=== PATIENT | male | born 1970 | race Caucasian/White ===

== ENCOUNTER 2023-05-30 16:34 | Inpatient (IN) | payer OTHER ==
[2023-05-30 17:00] LABS: Glucose,Whole Blood 271 mg/dL (70-110)
[2023-05-30 17:22] LABS: Basophils # (A) 0.1 k/uL (0-0.2); Basophils % (A) 0 %; Eosinophils # (A) 0.2 k/uL (0-0.7); Eosinophils % (A) 1 %; HCT 44.5 % (39.0-53.0); HGB 14.9 gm/dL (13.0-17.5); Lymphocytes # (A) 0.9 k/uL (1.0-4.8); Lymphocytes % (A) 4 %; MCH 26.5 pg (25.0-35.0); MCHC 33.5 g/dL (31.0-37.0); MCV 79.2 fL (80.0-100.0); Mean Platelet Volume 8.9; Monocytes # (A) 1.3 k/uL (0-1.0); Monocytes % (A) 6 %; Neutrophils # (A) 19.3 k/uL (1.3-7.7); Neutrophils % (A) 87 %; Platelet Count 208 k/uL (150-450); RBC 5.62 m/uL (4.30-5.90); RDW 13.4 % (11.5-15.5); WBC 22.3 k/uL (3.8-10.6)
[2023-05-30 17:37] LABS: ALT 22 U/L (4-49); AST 19 U/L (17-59); African American GFR (CKD) >90 (>60 ml/min/1.73 sqM); Albumin 4.1 g/dL (3.5-5.0); Alkaline Phosphatase 69 U/L (38-126); Anion Gap 11 mmol/L; Blood Urea Nitrogen 14 mg/dL (9-20); Calcium 9.1 mg/dL (8.4-10.2); Carbon Dioxide 20 mmol/L (22-30); Chloride 106 mmol/L (98-107); Glucose 263 mg/dL (74-99); Non-African American GFR(CKD) >90 (>60 ml/min/1.73 sqM); Sodium 137 mmol/L (137-145); Total Bilirubin 0.9 mg/dL (0.2-1.3); Total Protein 7.5 g/dL (6.3-8.2)
--- NOTE | 2023-05-30 18:12 | ED ---
General Adult HPI - General Chief complaint: Headache Stated complaint: Headache Time Seen by Provider: 05/30/23 16:52 Source: patient Mode of arrival: ambulatory Limitations: no limitations - History of Present Illness Initial comments: 53-year-old male presenting to the ED with a chief complaint of headache. Patient reports that he has history of migraines. States that migraines typically affect the back of his head however today states has had headache to the front of his head for the past 4 to 5 days. Reports that his symptoms are typically well-controlled with ibuprofen, Tylenol, and Imitrex at home. Despite taking these medications he reports no relief which she states is unusual with his history of headaches. Does note some associated photophobia with his headache which she does state is similar with history of headaches. In addition patient reports that he has been more tired than usual. States that he recently was switched from metformin to Ozempic. States on day one of the injection he typically has abdominal pains and nausea. Over the week he reports that this has resolved but still notes some lingering abdominal pain. He notes that he is no longer nauseous though and is actually hungry. No chest pains or shortness of breath. No other complaints at this time. - Related Data Home Medications Medication Instructions Recorded Confirmed Dicyclomine [Bentyl] 20 mg PO BID 05/31/23 05/31/23 Ibuprofen [Motrin] 800 mg PO Q8H PRN 05/31/23 05/31/23 Losartan/Hydrochlorothiazide 0.5 tab PO HS 05/31/23 05/31/23 [Losartan-Hctz 100-12.5 mg Tab] Omeprazole [PriLOSEC] 20 mg PO BID 05/31/23 05/31/23 SUMAtriptan succinate [Imitrex] 100 mg PO DAILY PRN 05/31/23 05/31/23 Semaglutide [Ozempic] 0.25 mg SQ LUCAS 05/31/23 05/31/23 Tamsulosin HCl [Flomax] 0.4 mg PO HS 05/31/23 05/31/23 Topiramate [Topamax] 100 mg PO HS 05/31/23 05/31/23 Previous Rx's Medication Instructions Recorded Cefpodoxime Proxetil [Vantin] 200 mg PO Q12HR #8 tab 06/01/23 Allergies Allergy/AdvReac Type Severity Reaction Status Date / Time erythromycin base AdvReac Abdominal Verified 05/31/23 08:41 Pain Review of Systems ROS Statement: Those systems with pertinent positive or pertinent negative responses have been documented in the HPI. ROS Other: All systems not noted in ROS Statement are negative. Past Medical History Past Medical History: Diabetes Mellitus, GERD/Reflux, Hypertension Additional Past Medical History / Comment(s): Migraines, UTI's, IBS History of Any Multi-Drug Resistant Organisms: None Reported Past Surgical History: No Surgical Hx Reported Past Psychological History: No Psychological Hx Reported Smoking Status: Never smoker Past Alcohol Use History: None Reported Past Drug Use History: None Reported - Past Family History Brother(s) Family Medical History: Hypertension Additional Family Medical History / Comment(s): migraines Mother Family Medical History: Hypertension Additional Family Medical History / Comment(s): migraines General Exam Limitations: no limitations General appearance: alert, in no apparent distress Eye exam: Present: PERRL, EOMI Neck exam: Present: normal inspection Respiratory exam: Present: normal lung sounds bilaterally Cardiovascular Exam: Present: regular rate GI/Abdominal exam: Present: soft, normal bowel sounds. Absent: distended, tenderness, guarding, rebound, rigid Neurological exam: Present: alert, oriented X3, CN II-XII intact (Tbjfbu-az-loir, [id number], rapid alternating hand movements intact.) Skin exam: Present: warm, dry Course Vital Signs 05/30/23 05/30/23 05/31/23 16:36 21:00 00:10 Temperature 98.7 F 98.5 F Pulse Rate 116 H 107 H 91 Respiratory 20 20 18 Rate Blood Pressure 166/89 152/80 142/82 O2 Sat by Pulse 96 94 L 99 Oximetry Medical Decision Making - Medical Decision Making Was pt. sent in by a medical professional or institution (, PA, IT SALES REPRESENTATIVE, urgent care, hospital, or residential...) When possible be specific @ -No Did you speak to anyone other than the patient for history (EMS, parent, family, police, friend...)? What history was obtained from this source @ -No Did you review nursing and triage notes (agree or disagree)? Why? @ -I reviewed and agree with nursing and triage notes Were old charts reviewed (outside hosp., previous admission, EMS record, old EKG, old radiological studies, urgent care reports/EKG's, residential records)? Report findings @ -No old charts were reviewed Differential Diagnosis (chest pain, altered mental status, abdominal pain women, abdominal pain men, vaginal bleeding, weakness, fever, dyspnea, syncope, headache, dizziness, GI bleed, back pain, seizure, CVA, palpatations, mental health, musculoskeletal)? @ -Differential Headache: Migraine, tension, cluster, carbon monoxide, central venous thrombosis, pension karma temporal arteritis, acute closure glaucoma, intercranial hemorrhage, mastoiditis, sinusitis, head injury, this is not meant to be an all-inclusive list. EKG interpreted by me (3pts min.). @ -None X-rays interpreted by me (1pt min.). @ -None done CT interpreted by me (1pt min.). @ -None done U/S interpreted by me (1pt. min.). @ -None done What testing was considered but not performed or refused? (CT, X-rays, U/S, labs)? Why? @ -None What meds were considered but not given or refused? Why? @ -None Did you discuss the management of the patient with other professionals (professionals i.e. , PA, IT SALES REPRESENTATIVE, lab, RT, psych nurse, social work specialist, cargo bracer, teacher, disabilities services officer, immigration case worker)? Give summary @ -Case discussed with Dr. Pace, who accepts admission. Was smoking cessation discussed for >3mins.? @ -No Was critical care preformed (if so, how long)? @ -Yes, 35 minutes. Were there social determinants of health that impacted care today? How? (Homelessness, low income, unemployed, alcoholism, drug addiction, transportation, low edu. Level, literacy, decrease access to med. care, long term, rehab)? @ -No Was there de-escalation of care discussed even if they declined (Discuss DNR or withdrawal of care, Hospice)? DNR status @ -No What co-morbidities impacted this encounter? (DM, HTN, Smoking, COPD, CAD, Cancer, CVA, ARF, Chemo, Hep., AIDS, mental health diagnosis, sleep apnea, morbid obesity)? @ -Type 2 diabetes Was patient admitted / discharged? Hospital course, mention meds given and route, prescriptions, significant lab abnormalities, going to OR and other pertinent info. @ -Admission 53-year-old male with a past medical history significant for type 2 diabetes and recurrent urinary tract infections presenting to the ED with a chief complaint of migraine which she also reports having history of however today's headache is more frontal in nature while history of headaches typically are occipital. Therefore CT brain was performed which revealed no evidence of acute finding. Patient provided analgesia here in the ED with significant improvement of headache however upon review of laboratory studies CBC is significant for an elevated white blood cell count of 22.3. Chemistry panel reviewed largely unremarkable except for some elevated blood sugars at 260. UA does appear consistent with infection with greater than 182 white blood cells, few white blood cell clumps, occasional bacteria. Vital signs reviewed. Patient is afebrile however is tachycardic and has a respiratory rate of 20. He does meet sepsis criteria which is why patient will be admitted to this hospital for continued IV antibiotics. Blood and urine cultures were obtained. Initiated IV antibiotics here in the ED. source of infection discovered at 1813. IV antibiotics ordered at 2039. Undiagnosed new problem with uncertain prognosis? Drug Therapy requiring intensive monitoring for toxicity (Heparin, Nitro, Insulin, Cardizem)? @ -No Were any procedures done? @ -No Diagnosis/symptom? @ -Urinary tract infection, migrain Acute, or Chronic, or Acute on Chronic? @ -Acute Uncomplicated (without systemic symptoms) or Complicated (systemic symptoms)? @ -Complicated Side effects of treatment? @ -No Exacerbation, Progression, or Severe Exacerbation? @ -No Poses a threat to life or bodily function? How? (Chest pain, [place], [place], pneumonia, PE, COPD, DKA, ARF, appy, cholecystitis, CVA, Diverticulitis, Homicidal, Suicidal, threat to staff... and all critical care pts) @ -Yes, sepsis - Lab Data Result diagrams: 06/01/23 09:55 06/01/23 09:55 Lab Results 05/30/23 05/30/23 05/30/23 Range/Units 16:59 17:14 17:14 WBC 22.3 H (3.8-10.6) k/uL RBC 5.62 (4.30-5.90) m/uL Hgb 14.9 (13.0-17.5) gm/dL Hct 44.5 (39.0-53.0) % MCV 79.2 L (80.0-100.0) fL MCH 26.5 (25.0-35.0) pg MCHC 33.5 (31.0-37.0) g/dL RDW 13.4 (11.5-15.5) % Plt Count 208 (150-450) k/uL MPV 8.9 Neutrophils % 87 % Lymphocytes % 4 % Monocytes % 6 % Eosinophils % 1 % Basophils % 0 % Neutrophils # 19.3 H (1.3-7.7) k/uL Lymphocytes # 0.9 L (1.0-4.8) k/uL Monocytes # 1.3 H (0-1.0) k/uL Eosinophils # 0.2 (0-0.7) k/uL Basophils # 0.1 (0-0.2) k/uL Sodium 137 (137-145) mmol/L Potassium 4.0 (3.5-5.1) mmol/L Chloride 106 (98-107) mmol/L Carbon Dioxide 20 L (22-30) mmol/L Anion Gap 11 mmol/L BUN 14 (9-20) mg/dL Creatinine 0.80 (0.66-1.25) mg/dL Est GFR (CKD-EPI)AfAm >90 (>60 ml/min/1.73 sqM) Est GFR (CKD-EPI)NonAf >90 (>60 ml/min/1.73 sqM) Glucose 263 H (74-99) mg/dL POC Glucose (mg/dL) 271 H (70-110) mg/dL POC Glu Community Support Worker ID Lucinda Dangelo Calcium 9.1 (8.4-10.2) mg/dL Total Bilirubin 0.9 (0.2-1.3) mg/dL AST 19 (17-59) U/L ALT 22 (4-49) U/L Alkaline Phosphatase 69 (38-126) U/L Total Protein 7.5 (6.3-8.2) g/dL Albumin 4.1 (3.5-5.0) g/dL Amylase (30-110) U/L Lipase (23-300) U/L Urine Color Urine Appearance (Clear) Urine pH (5.0-8.0) Ur Specific Clarence (1.001-1.035) Urine Protein (Negative) Urine Glucose (UA) (Negative) Urine Ketones (Negative) Urine Blood (Negative) Urine Nitrite (Negative) Urine Bilirubin (Negative) Urine Urobilinogen (<2.0) mg/dL Ur Leukocyte Esterase (Negative) Urine RBC (0-5) /hpf Urine WBC (0-5) /hpf Urine WBC Clumps (None) /hpf Ur Squamous Epith Cells (0-4) /hpf Urine Bacteria (None) /hpf Urine Mucus (None) /hpf Influenza Type A (PCR) (Not Detectd) Influenza Type B (PCR) (Not Detectd) RSV (PCR) (Not Detectd) SARS-CoV-2 (PCR) (Not Detectd) 05/30/23 05/30/23 05/30/23 Range/Units 18:08 18:10 19:33 WBC (3.8-10.6) k/uL RBC (4.30-5.90) m/uL Hgb (13.0-17.5) gm/dL Hct (39.0-53.0) % MCV (80.0-100.0) fL MCH (25.0-35.0) pg MCHC (31.0-37.0) g/dL RDW (11.5-15.5) % Plt Count (150-450) k/uL MPV Neutrophils % % Lymphocytes % % Monocytes % % Eosinophils % % Basophils % % Neutrophils # (1.3-7.7) k/uL Lymphocytes # (1.0-4.8) k/uL Monocytes # (0-1.0) k/uL Eosinophils # (0-0.7) k/uL Basophils # (0-0.2) k/uL Sodium (137-145) mmol/L Potassium (3.5-5.1) mmol/L Chloride (98-107) mmol/L Carbon Dioxide (22-30) mmol/L Anion Gap mmol/L BUN (9-20) mg/dL Creatinine (0.66-1.25) mg/dL Est GFR (CKD-EPI)AfAm (>60 ml/min/1.73 sqM) Est GFR (CKD-EPI)NonAf (>60 ml/min/1.73 sqM) Glucose (74-99) mg/dL POC Glucose (mg/dL) (70-110) mg/dL POC Glu Community Support Worker ID Calcium (8.4-10.2) mg/dL Total Bilirubin (0.2-1.3) mg/dL AST (17-59) U/L ALT (4-49) U/L Alkaline Phosphatase (38-126) U/L Total Protein (6.3-8.2) g/dL Albumin (3.5-5.0) g/dL Amylase 36 (30-110) U/L Lipase 27 (23-300) U/L Urine Color Yellow Urine Appearance Cloudy (Clear) Urine pH 6.0 (5.0-8.0) Ur Specific Clarence 1.028 (1.001-1.035) Urine Protein 2+ H (Negative) Urine Glucose (UA) 4+ H (Negative) Urine Ketones Trace H (Negative) Urine Blood Moderate H (Negative) Urine Nitrite Negative (Negative) Urine Bilirubin Negative (Negative) Urine Urobilinogen <2.0 (<2.0) mg/dL Ur Leukocyte Esterase Large H (Negative) Urine RBC 12 H (0-5) /hpf Urine WBC >182 H (0-5) /hpf Urine WBC Clumps Few H (None) /hpf Ur Squamous Epith Cells 1 (0-4) /hpf Urine Bacteria Occasional H (None) /hpf Urine Mucus Occasional H (None) /hpf Influenza Type A (PCR) Not Detected (Not Detectd) Influenza Type B (PCR) Not Detected (Not Detectd) RSV (PCR) Not Detected (Not Detectd) SARS-CoV-2 (PCR) Not Detected (Not Detectd) Disposition Clinical Impression: UTI (urinary tract infection), Headache Disposition: ADMITTED IP TO THIS HOSP
[2023-05-30] MEDS: SODIUM CHLORIDE 0.9% 1,000 ML IV STA ×2 (18:35→20:52)
[2023-05-30] MEDS: KETOROLAC 15 MG/ML 1 ML VIAL IVP STA (18:36)
--- NOTE | 2023-05-30 18:39 | CT ---
EXAMINATION TYPE: CT brain wo con DATE OF EXAM: 05/30/2023 HISTORY: intractable garcia CT DLP: 1242.4 mGycm. Automated Exposure Control for Dose Reduction was Utilized. TECHNIQUE: CT scan of the head is performed without contrast. COMPARISON: None. FINDINGS: There is no acute intracranial hemorrhage. . No mass or mass effect and no definite new att enuation defect. Extra-axial compartment is unremarkable. The globes are intact and the paranasal sin uses, middle ear cavities, and mastoid sinus air cells are clear. IMPRESSION: No acute process.
[2023-05-30 18:42] LABS: Amylase 36 U/L (30-110); Lipase 27 U/L (23-300)
[2023-05-30 19:04] LABS: Appearance,Urine Cloudy (Clear); Bacteria,Urine Occasional /hpf; Bilirubin,Urine Negative (Negative); Blood,Urine Moderate (Negative); Color,Urine Yellow; Glucose,Urine (UA) 4+ (Negative); Ketones,Urine Trace (Negative); Leukocyte Esterase,Urine Large (Negative); Mucus,Urine Occasional /hpf; Nitrite,Urine Negative (Negative); Protein,Urine 2+ (Negative); RBC,Urine 12 /hpf (0-5); Specific Gravity,Urine 1.028 (1.001-1.035); Squamous Epithelial Cell,Urine 1 /hpf (0-4); Urobilinogen,Urine <2.0 mg/dL (<2.0); WBC,Urine >182 /hpf (0-5)
[2023-05-30] MEDS: ACETAMINOPHEN TAB 500 MG TAB PO STA (19:40)
[2023-05-30] MEDS: DEXAMETHASONE SOD PHOSPHATE 10 MG/ML 1 ML VIAL IVP STA (19:40)
[2023-05-30] MEDS: METOCLOPRAMIDE 5 MG/ML 2 ML VIAL IVP STA (19:40)
[2023-05-30] MEDS: MAGNESIUM SULFATE-D5W PMX 1 GM in DEXTROSE/WATER 1 100ML.BAG IVPB SCH (19:44)
[2023-05-30] MEDS: SODIUM CHLORIDE 0.9% 2,000 ML IV STA (20:51)
[2023-05-30] MEDS ORDERED: ONDANSETRON 4 MG/2 ML VIAL IVP PRN (23:02)
[2023-05-30] MEDS ORDERED: NALOXONE 0.4 MG/ML 1 ML VIAL IV PRN (23:02)
[2023-05-31] MEDS: ACETAMINOPHEN TAB 325 MG TAB PO PRN (01:49)
[2023-05-31 05:30] LABS: Glucose,Whole Blood 296 mg/dL (70-110)
--- NOTE | 2023-05-31 06:12 | P.HPIM ---
History of Present Illness H&P Date: 05/31/23 Chief Complaint: Headache 53-year-old male with diabetes mellitus and recurrent UTI Patient coming into the hospital for evaluation of headache he reports history of migraines however has been having headache for the past 5 days with nausea but no vomiting he describes the episodes as getting worse and disabling with photophobia denies any focal neurodeficits denies any falls or head injury. Patient denies any fevers chills denies any abdominal pain back pain or urinary changes however while in the ED he was found to have high white count and UA was suggestive for possible UTI patient did confirm that he has been getting recurrent UTIs over the past year or 2 he follows up outpatient with urology. Patient denies smoking illicit drugs or heavy alcohol review of systems Pertinent positives as noted in HPI. All other systems were reviewed and are negative on exam Constitutional: No acute distress, conversant, pleasant Eyes: Anicteric sclerae, moist conjunctiva, Pupils equal round reactive to light ENMT: NC/AT Oropharynx clear, no erythema, or exudates Neck: Supple, no masses, or JVD No carotid bruits No thyromegaly Lungs: Clear to auscultation Clear to percussion Normal respiratory effort, no accessory muscle use Cardiovascular: Heart regular in rate and rhythm, No murmurs, gallops, or rubs No peripheral edema Abdominal: Soft Nontender, no guarding, rebound or rigidity Abdomen moving with respiration Normoactive bowel sounds Extremities: No digital cyanosis No clubbing Pedal pulses intact and symmetrical Radial pulses intact and symmetrical No calf tenderness Psychiatric: Alert and oriented to person, place and time Appropriate affect fair judgement Neuro Muscles Strength 5/5 in all 4 extremities Sensation to light touch grossly present throughout Cranial nerves II-XII grossly intact Past Medical History Past Medical History: Diabetes Mellitus, GERD/Reflux, Hypertension, Sleep Apnea/CPAP/BIPAP Additional Past Medical History / Comment(s): Migraines, UTI's, IBS, Sleep apnea with cpap, c4-c5 disc stenosis with injections, kidney stone, History of Any Multi-Drug Resistant Organisms: None Reported Past Surgical History: No Surgical Hx Reported Additional Past Surgical History / Comment(s): lasik surgery, carpal tunnel surgery (right), trigger finger surgery x 2, lipoma removal, Past Anesthesia/Blood Transfusion Reactions: No Reported Reaction Past Psychological History: No Psychological Hx Reported Smoking Status: Never smoker Past Alcohol Use History: None Reported Past Drug Use History: None Reported - Past Family History Brother(s) Family Medical History: Hypertension Additional Family Medical History / Comment(s): migraines Mother Family Medical History: Hypertension Additional Family Medical History / Comment(s): migraines Medications and Allergies Allergies Allergy/AdvReac Type Severity Reaction Status Date / Time Sulfa (Sulfonamide Allergy Rash/Hives Verified 05/30/23 16:39 Antibiotics) Physical Exam Vitals: Vital Signs Temp Pulse Pulse Resp BP BP Pulse Ox 05/31/23 00:23 97.4 F L 94 17 132/82 95 05/31/23 00:10 98.5 F 91 18 142/82 99 05/30/23 21:00 107 H 20 152/80 94 L 05/30/23 16:36 98.7 F 116 H 20 166/89 96 Intake and Output 05/30/23 05/30/23 05/31/23 14:59 22:59 06:59 Other: Weight 117.934 kg 117.934 kg Results CBC & Chem 7: 05/30/23 17:14 05/30/23 17:14 Labs: Abnormal Lab Results - Last 24 Hours (Table) 05/30/23 05/30/23 05/30/23 Range/Units 16:59 17:14 17:14 WBC 22.3 H (3.8-10.6) k/uL MCV 79.2 L (80.0-100.0) fL Neutrophils # 19.3 H (1.3-7.7) k/uL Lymphocytes # 0.9 L (1.0-4.8) k/uL Monocytes # 1.3 H (0-1.0) k/uL Carbon Dioxide 20 L (22-30) mmol/L Glucose 263 H (74-99) mg/dL POC Glucose (mg/dL) 271 H (70-110) mg/dL Urine Protein (Negative) Urine Glucose (UA) (Negative) Urine Ketones (Negative) Urine Blood (Negative) Ur Leukocyte Esterase (Negative) Urine RBC (0-5) /hpf Urine WBC (0-5) /hpf Urine WBC Clumps (None) /hpf Urine Bacteria (None) /hpf Urine Mucus (None) /hpf 05/30/23 Range/Units 18:10 WBC (3.8-10.6) k/uL MCV (80.0-100.0) fL Neutrophils # (1.3-7.7) k/uL Lymphocytes # (1.0-4.8) k/uL Monocytes # (0-1.0) k/uL Carbon Dioxide (22-30) mmol/L Glucose (74-99) mg/dL POC Glucose (mg/dL) (70-110) mg/dL Urine Protein 2+ H (Negative) Urine Glucose (UA) 4+ H (Negative) Urine Ketones Trace H (Negative) Urine Blood Moderate H (Negative) Ur Leukocyte Esterase Large H (Negative) Urine RBC 12 H (0-5) /hpf Urine WBC >182 H (0-5) /hpf Urine WBC Clumps Few H (None) /hpf Urine Bacteria Occasional H (None) /hpf Urine Mucus Occasional H (None) /hpf Thrombosis Risk Factor Assmnt - Choose All That Apply Each Factor Represents 1 point: Age 41-60 years Other congenital or acquired thrombophilia - If yes, enter type in comment: No Thrombosis Risk Factor Assessment Total Risk Factor Score: 1 Thrombosis Risk Factor Assessment Level: Low Risk Assessment and Plan Assessment: 53-year-old male with diabetes mellitus recurrent UTI coming in the hospital for evaluation of headache I discussed case with ED doctor and accepted the admission for sepsis secondary to complicated urinary tract infection recurrent, for IV antibiotics with anticipated length of stay more than 2 midnights Sepsis secondary to complicated UTI in male Follow-up cultures Rocephin 1 g IV piggyback daily Tylenol for fever White count 22 UA positive leukocyte esterase suggestive UTI IV fluid hydration status post 2 L normal saline continue with 130 cc/h Renal function unremarkable sodium 137 potassium 4 BUN 14 creatinine 0.8 Lactic acid unremarkable 1.6 Diabetes mellitus Insulin sliding scale Uncontrolled blood sugar Patient on Ozempic at home Migraine headache Continue with Tylenol 650 mg every 4 hours as needed Zofran 4 mg IV every [address] of the brain no acute intracranial pathology Full code DVT prophylaxis heparin subcu 3 times daily
[2023-05-31] MEDS ORDERED: DEXTROSE 50% SYRINGE 50 ML IVP PRN ×2 (06:13)
[2023-05-31] MEDS: INSULIN ASPART (NovoLOG) 100 UNIT/ML VIAL SQ SCH (06:40)
--- NOTE | 2023-05-31 08:33 | US ---
EXAMINATION TYPE: US kidneys/renal and bladder DATE OF EXAM: 05/31/2023 COMPARISON: NONE CLINICAL INDICATION: Male, 53 years old with history of sepsis, uti; Patient states multiple UTIs sin ce being diagnosed with DM 1 year ago. Patient denies any other signs, symptoms, or relevant history EXAM MEASUREMENTS: Right Kidney: 13.1 x 7.2 x 6.1 cm Left Kidney: 14.3 x 6.5 x 6.5 cm Post Void Residual Volume: NA mL Right Kidney: Multiple echogenic areas with minimal shadowing and twinkle artifact Left Kidney: Multiple echogenic areas with minimal shadowing and twinkle artifact; subcentimeter cyst noted Bladder: Not fully distended Bilateral Jets seen: Yes Normal Post Void Residual: NA There is no evidence for hydronephrosis at this point in time. No nephrolithiasis is seen. No hannah s are identified. The urinary bladder is anechoic. Bilateral ureteral jets are seen. Increased echotexture to liver parenchyma. IMPRESSION: 1. Bilateral nonobstructing renal calculi. No evidence for obstructive uropathy. 2. Hepatic steatosis.
[2023-05-31] MEDS ORDERED: cefTRIAXone IN SWFI 1,000 MG/10 ML SYRINGE IVP SCH (09:00)
[2023-05-31] MEDS: KETOROLAC 15 MG/ML 1 ML VIAL IVP PRN (10:34)
[2023-05-31 11:05] LABS: Basophils % (A) 0 %; Eosinophils % (A) 0 %; HCT 44.1 % (39.0-53.0); Lymphocytes # (A) 0.9 k/uL (1.0-4.8); Lymphocytes % (A) 6 %; MCH 26.1 pg (25.0-35.0); MCHC 31.6 g/dL (31.0-37.0); MCV 82.4 fL (80.0-100.0); Monocytes # (A) 0.8 k/uL (0-1.0); Monocytes % (A) 5 %; Neutrophils # (A) 14.1 k/uL (1.3-7.7); Neutrophils % (A) 88 %; Platelet Count 209 k/uL (150-450); RBC 5.35 m/uL (4.30-5.90); RDW 13.5 % (11.5-15.5)
[2023-05-31 11:15] LABS: African American GFR (CKD) >90 (>60 ml/min/1.73 sqM); Anion Gap 12 mmol/L; Blood Urea Nitrogen 20 mg/dL (9-20); Calcium 9.3 mg/dL (8.4-10.2); Carbon Dioxide 18 mmol/L (22-30); Chloride 109 mmol/L (98-107); Glucose 297 mg/dL (74-99); Non-African American GFR(CKD) >90 (>60 ml/min/1.73 sqM); Sodium 139 mmol/L (137-145)
[2023-05-31 11:46] LABS: Glucose,Whole Blood 280 mg/dL (70-110)
[2023-05-31 17:03] LABS: Glucose,Whole Blood 331 mg/dL (70-110)
[2023-05-31] MEDS ORDERED: NON FORMULARY DRUG (Losartan/Hydrochlorothiazide [Losartan-Hctz 100-12.5 Mg Tab] 1 EACH Ta PO SCH (21:00)
[2023-05-31 21:41] LABS: Glucose,Whole Blood 277 mg/dL (70-110)
[2023-05-31] MEDS: LOSARTAN 50 MG TAB PO SCH (21:47)
[2023-05-31] MEDS: TAMSULOSIN 0.4 MG CAP.ER.24H PO SCH (21:47)
[2023-05-31] MEDS: TOPIRAMATE 100 MG TAB PO SCH (21:47)
[2023-05-31] MEDS: PANTOPRAZOLE 40 MG TABLET PO SCH (22:29)
[2023-06-01 04:42] VITALS: PULSE 89
[2023-06-01 06:47] LABS: Glucose,Whole Blood 222 mg/dL (70-110)
[2023-06-01] MEDS: HYDROmorphone 1 MG/ML 1 ML SYRINGE IVP PRN (07:01)
[2023-06-01 08:53] VITALS: BP 115/71; RESP 19; TEMP 98.2
[2023-06-01 11:00] LABS: Basophils % (A) 0 %; Eosinophils # (A) 0.1 k/uL (0-0.7); Eosinophils % (A) 1 %; HCT 41.1 % (39.0-53.0); HGB 12.9 gm/dL (13.0-17.5); Lymphocytes # (A) 1.8 k/uL (1.0-4.8); Lymphocytes % (A) 13 %; MCH 26.1 pg (25.0-35.0); MCHC 31.4 g/dL (31.0-37.0); MCV 83.1 fL (80.0-100.0); Mean Platelet Volume 9.3; Monocytes # (A) 0.8 k/uL (0-1.0); Monocytes % (A) 6 %; Neutrophils # (A) 10.5 k/uL (1.3-7.7); Neutrophils % (A) 78 %; Platelet Count 241 k/uL (150-450); RBC 4.95 m/uL (4.30-5.90); RDW 13.6 % (11.5-15.5); WBC 13.5 k/uL (3.8-10.6)
[2023-06-01 11:23] LABS: Glucose,Whole Blood 204 mg/dL (70-110)
[2023-06-01 11:57] LABS: African American GFR (CKD) >90 (>60 ml/min/1.73 sqM); Anion Gap 13 mmol/L; Blood Urea Nitrogen 22 mg/dL (9-20); Calcium 9.1 mg/dL (8.4-10.2); Carbon Dioxide 18 mmol/L (22-30); Chloride 108 mmol/L (98-107); Glucose 253 mg/dL (74-99); Non-African American GFR(CKD) >90 (>60 ml/min/1.73 sqM); Potassium 3.4 mmol/L (3.5-5.1); Sodium 139 mmol/L (137-145)
[2023-06-01] MEDS: POTASSIUM CHLORIDE ER 20 MEQ TAB.ER PO STA (13:04)
--- NOTE | 2023-06-01 13:09 | P.DS ---
Providers Date of admission: 05/30/23 20:29 Expected date of discharge: 06/01/23 Attending physician: Aminah Pace MD Primary care physician: [facility] Hospital Course: Discharge Diagnosis: Complicated Gram negative UTI with sepsis Intractable migraine DM uncontrolled with A1C 8.7 HTN TYRONE Class III Obesity Hospital Course: Patient is a 53-year-old male with a history of chronic migraine headache on prophylactic medication with Topamax, recurrent urinary tract infections, diabetes, hypertension, and dyslipidemia who presented to the emergency department with complaints of fatigue, weakness, and headache. On admission he had noted some abdominal pain. Laboratory analysis revealed urinary tract infection with significant leukocytosis meeting sepsis criteria as his pulse was also 117. He was admitted and was started on IV fluids and Rocephin. He was also continued on IV Toradol and Dilaudid as needed for pain. His white blood cell count continue to improve. His headache improved and his symptoms resolved. He was subsequently determined stable for discharge home. Complex medical care. Patient's hemoglobin A1c 8.7. He reports that he was recently taken off of metformin and Jardiance and started on Ozempic however he has been having difficulty tolerating the 0.25 mg dose and he has not been able to increase it. He reports that his last A1c approximately 6 weeks ago was in the sevens and he is now up to 8.7. He is very concerned about this. We discussed that he has his metformin tablets still available at home. He is going to restart at 500 mg twice daily and then increase to his 1000 mg twice daily. He will continue to monitor his blood sugars at home. We also discussed that he came off Jardiance due to his recurrent urinary tract infections and follows closely with a urologist which he will continue to do. Follow-up: Patient follow-up with his primary care provider in 1 week. He was given a prescription for Vantin 200 mg twice daily for complicated urinary tract infection. His urine culture was not available at the time of discharge and I informed him that should his antibiotic need to be changed I will call him with further recommendations. Patient seen and examined at bedside. Doing well. Headache is feeling better. He is overall feeling better. Discussion and was conducted and complex medical care above Vital signs reviewed and stable. General: Nontoxic, no distress, appears at stated age Cardiovascular: S1S2 reg, no murmur, positive posterior tibial pulse bilateral, Lungs: CTA bilateral, no rhonchi, no rales, no accessory muscle use Abdominal: Soft, nontender to palpation, no guarding, no appreciable organomegaly Psych: Alert, oriented, appropriate affect A total of 45 minutes of time were spent preparing this complex discharge summary. Patient was discharged on 06/01/23. This dictation was prepared using [employer] voice recognition software. Though every attempt is made to correct errors during dictation some may still exist. Plan - Discharge Summary Discharge Rx Participant: No New Discharge Prescriptions: New Cefpodoxime Proxetil [Vantin] 200 mg PO Q12HR #8 tab Continue SUMAtriptan succinate [Imitrex] 100 mg PO DAILY PRN PRN Reason: Migraine Headache Tamsulosin HCl [Flomax] 0.4 mg PO HS Losartan/Hydrochlorothiazide [Losartan-Hctz 100-12.5 mg Tab] 0.5 tab PO HS Ibuprofen [Motrin] 800 mg PO Q8H PRN PRN Reason: Pain Omeprazole [PriLOSEC] 20 mg PO BID Dicyclomine [Bentyl] 20 mg PO BID Topiramate [Topamax] 100 mg PO HS Semaglutide [Ozempic] 0.25 mg SQ LUCAS Discharge Medication List Dicyclomine [Bentyl] 20 mg PO BID 05/31/23 [History] Ibuprofen [Motrin] 800 mg PO Q8H PRN 05/31/23 [History] Losartan/Hydrochlorothiazide [Losartan-Hctz 100-12.5 mg Tab] 0.5 tab PO HS 05/31/23 [History] Omeprazole [PriLOSEC] 20 mg PO BID 05/31/23 [History] SUMAtriptan succinate [Imitrex] 100 mg PO DAILY PRN 05/31/23 [History] Semaglutide [Ozempic] 0.25 mg SQ LUCAS 05/31/23 [History] Tamsulosin HCl [Flomax] 0.4 mg PO HS 05/31/23 [History] Topiramate [Topamax] 100 mg PO HS 05/31/23 [History] Cefpodoxime Proxetil [Vantin] 200 mg PO Q12HR #8 tab 06/01/23 [Rx] Follow up Appointment(s)/Referral(s): None,Stated [REFERRING] - 1-2 days [facility] [Primary Care Provider] - 1 Week Activity/Diet/Wound Care/Special Instructions: Activity: As tolerated Diet: Consistent carb Special Instructions: Please resume your metformin at 1000mg per day (1/2 tablet twice daily if able) and then after 5 days resume metformin 1000mg BID. Please continue to follow with your urologist and neurologist Discharge Disposition: HOME SELF-CARE
== END 2023-06-01 13:10 | disposition home or self-care (01) | DRG 872 ==
LOC: EC 16:34 → 4SSUR 20:29
PROVIDERS: ADMIT Internal Medicine; ATTEND Internal Medicine
DX: A41.51 Sepsis due to Escherichia coli [E. coli] (principal); N39.0 Urinary tract infection, site not specified; Z68.41 Body mass index [BMI] 40.0-44.9, adult; E11.65 Type 2 diabetes mellitus with hyperglycemia; E66.01 Morbid (severe) obesity due to excess calories; I10 Essential (primary) hypertension; G43.919 Migraine, unspecified, intractable, without status migrainosus; G47.33 Obstructive sleep apnea (adult) (pediatric); E78.5 Hyperlipidemia, unspecified; N20.0 Calculus of kidney; Z87.440 Personal history of urinary (tract) infections; Z79.899 Other long term (current) drug therapy; Z79.85 Long-term (current) use of injectable non-insulin antidiabetic drugs; Z88.1 Allergy status to other antibiotic agents; Z11.52 Encounter for screening for COVID-19; Z87.442 Personal history of urinary calculi
CPT/HCPCS: 36415; 70450; 76770; 80048; 80053; 81001; 82150; 83036; 83605; 83690; 85025; 87040; 87077; 87086; 87186; 87636; 96361; 96365; 96366; 96367; 96375; 99285

== ENCOUNTER 2023-10-27 13:51 | Inpatient (IN) | payer OTHER ==
--- NOTE | 2023-10-27 14:33 | ED ---
General Adult HPI - General Chief complaint: Fever Stated complaint: high temp Time Seen by Provider: 10/27/23 13:58 Source: patient Mode of arrival: ambulatory Limitations: no limitations - History of Present Illness Initial comments: Dictation was produced using [employer] dictation software. please excuse any grammatical, word or spelling errors. Chief Complaint: 53-year-old male with past medical history of diabetes and migraines presents with a headache for fever History of Present Illness: Patient is a 53-year-old male. Presents to the emergency department with significant other. Significant other states that patient has history of diabetes and gets frequent UTIs. Patient has had a fever for the last 24 hours. Denies any obvious sick contacts but he does work at the [employer]. Patient has a history of migraines. Complains of a bifrontal headache that is throbbing in nature states that this headache feels like his usual headaches. Denies any neck stiffness. He does have diffuse myalgias. Mild abdominal pain. No cough. No shortness of breath no sore throat. The ROS documented in this emergency department record has been reviewed and confirmed by me. Those systems with pertinent positive or negative responses have been documented in the HPI. All other systems are other negative and/or noncontributory. - Related Data Home Medications Medication Instructions Recorded Confirmed Dicyclomine [Bentyl] 20 mg PO BID 05/31/23 05/31/23 Ibuprofen [Motrin] 800 mg PO Q8H PRN 05/31/23 05/31/23 Losartan/Hydrochlorothiazide 0.5 tab PO HS 05/31/23 05/31/23 [Losartan-Hctz 100-12.5 mg Tab] Omeprazole [PriLOSEC] 20 mg PO BID 05/31/23 05/31/23 SUMAtriptan succinate [Imitrex] 100 mg PO DAILY PRN 05/31/23 05/31/23 Semaglutide [Ozempic] 0.25 mg SQ LUCAS 05/31/23 05/31/23 Tamsulosin HCl [Flomax] 0.4 mg PO HS 05/31/23 05/31/23 Topiramate [Topamax] 100 mg PO HS 05/31/23 05/31/23 Previous Rx's Medication Instructions Recorded Cefpodoxime Proxetil [Vantin] 200 mg PO Q12HR #8 tab 06/01/23 Allergies Allergy/AdvReac Type Severity Reaction Status Date / Time erythromycin base AdvReac Abdominal Verified 10/27/23 14:03 Pain Review of Systems ROS Statement: Those systems with pertinent positive or pertinent negative responses have been documented in the HPI. ROS Other: All systems not noted in ROS Statement are negative. Past Medical History Past Medical History: Diabetes Mellitus, GERD/Reflux, Hypertension Additional Past Medical History / Comment(s): Migraines, UTI's, IBS History of Any Multi-Drug Resistant Organisms: None Reported Past Surgical History: No Surgical Hx Reported Additional Past Surgical History / Comment(s): lasik surgery, carpal tunnel surgery (right), trigger finger surgery x 2, lipoma removal, Past Anesthesia/Blood Transfusion Reactions: No Reported Reaction Past Psychological History: No Psychological Hx Reported Smoking Status: Never smoker Past Alcohol Use History: None Reported Past Drug Use History: None Reported - Past Family History Brother(s) Family Medical History: Hypertension Additional Family Medical History / Comment(s): migraines Mother Family Medical History: Hypertension Additional Family Medical History / Comment(s): migraines General Exam - General Exam Comments Initial Comments: PHYSICAL EXAM: General Impression: Alert and oriented x3, not in acute distress HEENT: Normocephalic atraumatic, extra-ocular movements intact, pupils equal and reactive to light bilaterally, mucous membranes moist. Cardiovascular: Heart regular rate and rhythm Chest: Able to complete full sentences, no retractions, no tachypnea Abdomen: abdomen soft, non-tender, non-distended, no organomegaly Musculoskeletal: Pulses present and equal in all extremities, no peripheral edema Motor: no focal deficits noted Neurological: CN II-XII grossly intact, no focal motor or sensory deficits noted, negative Kernig's, negative Brudzinski's, negative Lhermitte sign Skin: Intact with no visualized rashes Psych: Normal affect and mood Limitations: no limitations Course Vital Signs 10/27/23 10/27/23 14:00 14:59 Temperature 103.1 F H Pulse Rate 132 H Respiratory 20 16 Rate Blood Pressure 152/92 O2 Sat by Pulse 93 L Oximetry EKG Findings - EKG Comments: EKG Findings:: My EKG interpretation: Ventricular rate 130, sinus tachycardia,. 149, QRS 88, QTc 410. No NE prolongation, no QTC prolongation, no ST or T-wave changes noted. Overall, this EKG is unremarkable Medical Decision Making - Medical Decision Making Was pt. sent in by a medical professional or institution (, PA, [employer], urgent care, hospital, or care home...) When possible be specific @ -No Did you speak to anyone other than the patient for history (EMS, parent, family, police, friend...)? What history was obtained from this source @ -No Did you review nursing and triage notes (agree or disagree)? Why? @ -I reviewed and agree with nursing and triage notes Were old charts reviewed (outside hosp., previous admission, EMS record, old EKG, old radiological studies, urgent care reports/EKG's, care home records)? Report findings @ -No old charts were reviewed Differential Diagnosis (chest pain, altered mental status, abdominal pain women, abdominal pain men, vaginal bleeding, musculoskeletal, weakness, fever, d yspnea, syncope, headache, dizziness, GI bleed, back pain, seizure, CVA, palpatations, mental health)? @ -Differential fever EKG interpreted by me (3pts min.). @ -See above X-rays interpreted by me (1pt min.). @ -Chest x-ray shows no acute processes CT interpreted by me (1pt min.). @ -None done U/S interpreted by me (1pt. min.). @ -None done What testing was considered but not performed or refused? (CT, X-rays, U/S, labs)? Why? @ -None What meds were considered but not given or refused? Why? @ -None Was smoking cessation discussed for >3mins.? @ -No Were there social determinants of health that impacted care today? How? (Homelessness, low income, unemployed, alcoholism, drug addiction, transportation, low edu. Level, literacy, decrease access to med. care, correction, rehab)? @ -No Was there de-escalation of care discussed even if they declined (Discuss DNR or withdrawal of care, Hospice)? DNR status @ -No What co-morbidities impacted this encounter? (DM, HTN, Smoking, COPD, CAD, Cancer, CVA, ARF, Chemo, Hep., AIDS, mental health diagnosis, sleep apnea, morbid obesity)? @ -History of UTIs Was patient admitted / discharged? Hospital course, mention meds given and route, prescriptions, significant lab abnormalities, going to OR and other pertinent info. @ -53-year-old male who is well-appearing presents to the ER for fever constitutional symptoms. Vital signs upon arrival shows temperature of 103.1 with tachycardia of 132 likely secondary to fever. 93% on room air. Patient well-appearing at the bedside. He does appear to be slightly malaised. He does not have any obvious focal findings. Patient has acute on chronic migraine likely triggered from this fever event. Signs of encephalitis or meningitis. He is mentating appropriately. Patient has a leukocytosis of 16.6. Metabolic panel shows mild dose 2.4. Testing is negative. Started on Zosyn. Will be ad mitted consultation to infectious disease Did you discuss the management of the patient with other professionals (professionals i.e. , PA, [employer], lab, RT, psych nurse, social media content specialist, payroll examiner, teacher, vessel traffic officer, field nurse case manager)? Give summary @ -Case discussed with hospitalist for admission Dr. Esquivel Was critical care preformed (if so, how long)? @ -No Undiagnosed new problem with uncertain prognosis? @ -No Drug Therapy requiring intensive monitoring for toxicity (Heparin, Nitro, Insuli n, Cardizem)? @ -No Were any procedures done? @ -No Diagnosis/symptom? Acute, or Chronic, or Acute on Chronic? Uncomplicated (without systemic symptoms) or Complicated (systemic symptoms)? @ -Fever Side effects of treatment? @ -No Exacerbation, Progression, or Severe Exacerbation? @ -No Poses a threat to life or bodily function? How? (Chest pain, [place], [place], pneumonia, PE, COPD, DKA, ARF, appy, cholecystitis, CVA, Diverticulitis, Homicidal, Suicidal, threat to staff... and all critical care pts) @ -yes - Lab Data Result diagrams: 10/27/23 14:09 10/27/23 14:09 Lab Results 10/27/23 10/27/23 10/27/23 Range/Units 14:09 14: 14: WBC 16.6 H (3.8-10.6) k/uL RBC 5.30 (4.30-5.90) m/uL Hgb 14.0 (13.0-17.5) gm/dL Hct 41.8 (39.0-53.0) % MCV 78.8 L (80.0-100.0) fL MCH 26.5 (25.0-35.0) pg MCHC 33.6 (31.0-37.0) g/dL RDW 13.9 (11.5-15.5) % Plt Count 188 (150-450) k/uL MPV 8.9 Neutrophils % 92 % Lymphocytes % 2 % Monocytes % 5 % Eosinophils % 0 % Basophils % 0 % Neutrophils # 15.2 H (1.3-7.7) k/uL Lymphocytes # 0.4 L (1.0-4.8) k/uL Monocytes # 0.8 (0-1.0) k/uL Eosinophils # 0.1 (0-0.7) k/uL Basophils # 0.0 (0-0.2) k/uL PT (10.0-12.5) sec INR (<1.2) APTT (22.0-30.0) sec Sodium 133 L (137-145) mmol/L Potassium 4.1 (3.5-5.1) mmol/L Chloride 101 (98-107) mmol/L Carbon Dioxide 24 (22-30) mmol/L Anion Gap 8 mmol/L BUN 15 (9-20) mg/dL Creatinine 0.72 (0.66-1.25) mg/dL Est GFR (CKD-EPI)AfAm >90 (>60 ml/min/1.73 sqM) Est GFR (CKD-EPI)NonAf >90 (>60 ml/min/1.73 sqM) Glucose 216 H (74-99) mg/dL Plasma Lactic Acid Abisai (0.7-2.0) mmol/L Calcium 9.4 (8.4-10.2) mg/dL Magnesium 1.2 L (1.6-2.3) mg/dL Total Bilirubin 1.0 (0.2-1.3) mg/dL AST 36 (17-59) U/L ALT 32 (4-49) U/L Alkaline Phosphatase 65 (38-126) U/L Total Protein 7.2 (6.3-8.2) g/dL Albumin 4.2 (3.5-5.0) g/dL Influenza Type A (PCR) Not Detected (Not Detectd) Influenza Type B (PCR) Not Detected (Not Detectd) RSV (PCR) Not Detected (Not Detectd) SARS-CoV-2 (PCR) Not Detected (Not Detectd) 10/27/23 10/27/23 Range/Units 14:10 14:10 WBC (3.8-10.6) k/uL RBC (4.30-5.90) m/uL Hgb (13.0-17.5) gm/dL Hct (39.0-53.0) % MCV (80.0-100.0) fL MCH (25.0-35.0) pg MCHC (31.0-37.0) g/dL RDW (11.5-15.5) % Plt Count (150-450) k/uL MPV Neutrophils % % Lymphocytes % % Monocytes % % Eosinophils % % Basophils % % Neutrophils # (1.3-7.7) k/uL Lymphocytes # (1.0-4.8) k/uL Monocytes # (0-1.0) k/uL Eosinophils # (0-0.7) k/uL Basophils # (0-0.2) k/uL PT 11.3 (10.0-12.5) sec INR 1.0 (<1.2) APTT 28.0 (22.0-30.0) sec Sodium (137-145) mmol/L Potassium (3.5-5.1) mmol/L Chloride (98-107) mmol/L Carbon Dioxide (22-30) mmol/L Anion Gap mmol/L BUN (9-20) mg/dL Creatinine (0.66-1.25) mg/dL Est GFR (CKD-EPI)AfAm (>60 ml/min/1.73 sqM) Est GFR (CKD-EPI)NonAf (>60 ml/min/1.73 sqM) Glucose (74-99) mg/dL Plasma Lactic Acid Abisai 2.4 H* (0.7-2.0) mmol/L Calcium (8.4-10.2) mg/dL Magnesium (1.6-2.3) mg/dL Total Bilirubin (0.2-1.3) mg/dL AST (17-59) U/L ALT (4-49) U/L Alkaline Phosphatase (38-126) U/L Total Protein (6.3-8.2) g/dL Albumin (3.5-5.0) g/dL Influenza Type A (PCR) (Not Detectd) Influenza Type B (PCR) (Not Detectd) RSV (PCR) (Not Detectd) SARS-CoV-2 (PCR) (Not Detectd) Disposition Clinical Impression: Fever Disposition: ADMITTED IP TO THIS HOSP Condition: Fair Referrals: [facility] [Primary Care Provider] - 1-2 days Decision Time: 15:58
[2023-10-27] MEDS: KETOROLAC 15 MG/ML 1 ML VIAL IVP STA (14:44)
[2023-10-27] MEDS: diphenhydrAMINE 50 MG/ML 1 ML VIAL IVP STA (14:44)
[2023-10-27] MEDS: SODIUM CHLORIDE 0.9% 1,000 ML IV STA (14:44)
[2023-10-27] MEDS: ONDANSETRON 4 MG/2 ML VIAL IVP STA (14:45)
[2023-10-27 15:00] LABS: Basophils % (A) 0 %; Eosinophils # (A) 0.1 k/uL (0-0.7); Eosinophils % (A) 0 %; HCT 41.8 % (39.0-53.0); Lymphocytes # (A) 0.4 k/uL (1.0-4.8); Lymphocytes % (A) 2 %; MCH 26.5 pg (25.0-35.0); MCHC 33.6 g/dL (31.0-37.0); MCV 78.8 fL (80.0-100.0); Mean Platelet Volume 8.9; Monocytes # (A) 0.8 k/uL (0-1.0); Monocytes % (A) 5 %; Neutrophils # (A) 15.2 k/uL (1.3-7.7); Neutrophils % (A) 92 %; Platelet Count 188 k/uL (150-450); RDW 13.9 % (11.5-15.5); WBC 16.6 k/uL (3.8-10.6)
[2023-10-27 15:11] LABS: ALT 32 U/L (4-49); AST 36 U/L (17-59); African American GFR (CKD) >90 (>60 ml/min/1.73 sqM); Albumin 4.2 g/dL (3.5-5.0); Alkaline Phosphatase 65 U/L (38-126); Anion Gap 8 mmol/L; Blood Urea Nitrogen 15 mg/dL (9-20); Calcium 9.4 mg/dL (8.4-10.2); Carbon Dioxide 24 mmol/L (22-30); Chloride 101 mmol/L (98-107); Glucose 216 mg/dL (74-99); Magnesium 1.2 mg/dL (1.6-2.3); Non-African American GFR(CKD) >90 (>60 ml/min/1.73 sqM); Potassium 4.1 mmol/L (3.5-5.1); Sodium 133 mmol/L (137-145); Total Protein 7.2 g/dL (6.3-8.2)
[2023-10-27 15:15] LABS: Prothrombin Time 11.3 sec (10.0-12.5)
[2023-10-27] MEDS: ACETAMINOPHEN IV (For NPO) 1,000 MG in EMPTY BAG 1 BAG IVPB STA (15:35)
--- NOTE | 2023-10-27 15:39 | XR ---
EXAMINATION TYPE: XR chest 2V DATE OF EXAM: 10/27/2023 3:06 PM CLINICAL INDICATION: Male, 53 years old with history of fever; COMPARISON: none TECHNIQUE: XR chest 2V Frontal view of the chest. FINDINGS: Lungs/Pleura: There is no evidence of pleural effusion, focal consolidation, or pneumothorax. Pulmonary vascularity: Unremarkable. Heart/mediastinum: Cardiomediastinal silhouette is unremarkable. Musculoskeletal: No acute osseous pathology. Other findings: None IMPRESSION: No acute cardiopulmonary disease/process.
[2023-10-27] MEDS ORDERED: NALOXONE 0.4 MG/ML 1 ML VIAL IV PRN ×2 (15:57→17:41)
[2023-10-27] MEDS: SODIUM CHLORIDE 0.9% 1,000 ML IV SCH ×2 (16:05→18:10)
[2023-10-27] MEDS: PIPERACILLIN-TAZOBACTAM 3.375 GM in SODIUM CHLORIDE 0.9% 100 ML IVPB SCH (16:05)
[2023-10-27] MEDS ORDERED: IOPAMIDOL CONTRAST (ORAL USE) VIAL PO PRN (16:11)
[2023-10-27 16:54] LABS: Appearance,Urine Cloudy (Clear); Bacteria,Urine Few /hpf; Bilirubin,Urine Negative (Negative); Blood,Urine Moderate (Negative); Color,Urine Yellow; Glucose,Urine (UA) 4+ (Negative); Ketones,Urine 1+ (Negative); Leukocyte Esterase,Urine Small (Negative); Mucus,Urine Rare /hpf; Nitrite,Urine Negative (Negative); PH, Urine 5.5 (5.0-8.0); Protein,Urine 2+ (Negative); RBC,Urine 3 /hpf (0-5); Specific Gravity,Urine 1.022 (1.001-1.035); Urobilinogen,Urine <2.0 mg/dL (<2.0); WBC,Urine 50 /hpf (0-5)
--- NOTE | 2023-10-27 17:51 | P.HPIM ---
History of Present Illness H&P Date: 10/27/23 Chief Complaint: fever 53-year-old male with past medical history of diabetes II, HTN and migraines presents with severe headaches, fevers, chills, myalgia, fatigue, diaphoresis for the past several days. States he frequently gets UTIs, last one was last April, which required hospitalization. Has increased frequency but denied any dysuria or urgency. Has slight lower abdominal pain. Denies any obvious sick contacts but he does work at the [employer]. Has been having worsening bifrontal headache that is throbbing in nature states that this headache feels like his usual migraine headaches. Denies any neck stiffness. No cough. No shortness of breath no sore throat. Review of Systems complete review of system performed, pertinent positives per HPI, otherwise negative Past Medical History Past Medical History: Diabetes Mellitus, GERD/Reflux, Hypertension Additional Past Medical History / Comment(s): Migraines, UTI's, IBS History of Any Multi-Drug Resistant Organisms: None Reported Past Surgical History: No Surgical Hx Reported Additional Past Surgical History / Comment(s): lasik surgery, carpal tunnel surgery (right), trigger finger surgery x 2, lipoma removal, Past Anesthesia/Blood Transfusion Reactions: No Reported Reaction Past Psychological History: No Psychological Hx Reported Smoking Status: Never smoker Past Alcohol Use History: None Reported Past Drug Use History: None Reported - Past Family History Brother(s) Family Medical History: Hypertension Additional Family Medical History / Comment(s): migraines Mother Family Medical History: Hypertension Additional Family Medical History / Comment(s): migraines Medications and Allergies Home Medications Medication Instructions Recorded Confirmed Type RX: Dicyclomine [Bentyl] 20 mg PO BID 05/31/23 10/27/23 History RX: Omeprazole [PriLOSEC] 20 mg PO BID 05/31/23 10/27/23 History RX: Tamsulosin HCl [Flomax] 0.4 mg PO HS 05/31/23 10/27/23 History RX: Topiramate [Topamax] 100 mg PO HS 05/31/23 10/27/23 History Losartan [Cozaar] 50 mg PO HS 10/27/23 10/27/23 History RX: metFORMIN HCL 1,000 mg PO BID 10/27/23 10/27/23 History SUMAtriptan succinate [Imitrex] 50 mg PO DAILY PRN 10/27/23 10/27/23 History glipiZIDE [Glucotrol] 5 mg PO BID 10/27/23 10/27/23 History Allergies Allergy/AdvReac Type Severity Reaction Status Date / Time erythromycin base AdvReac Abdominal Verified 10/27/23 16:58 Pain Physical Exam Vitals: Vital Signs Temp Pulse Resp BP Pulse Ox 10/27/23 14:59 16 10/27/23 14:00 103.1 F H 132 H 20 152/92 93 L Intake and Output 10/27/23 10/27/23 10/27/23 06:59 14:59 22:59 Other: Weight 127.006 kg Constitutional: No acute distress, conversant, pleasant Eyes:Anicteric sclerae, moist conjunctiva, no lid-lag, PERRLA, ENMT: Oropharynx clear, no erythema, exudates Neck: Supple, FROM, no masses, or JVD, No carotid bruits, No thyromegaly Lungs: Clear to auscultation, Clear to percussion, Normal respiratory effort, no accessory muscle use Cardiovascular: tachycardic, regular in rate and rhythm, No murmurs, gallops, or rubs, No peripheral edema Abdominal: Soft, Nontender, no guarding, rebound or rigidity, Normoactive bowel sounds, No hepatomegaly, No splenomegaly, No palpable mass Skin: Normal temperature, tone, texture, turgor, no induration, No subcutaneous nodules, No rash, lesions, No ulcers Extremities: No digital cyanosis, No clubbing, Pedal pulses intact and symmetrical, Radial pulses intact and symmetrical, No calf tenderness Psychiatric: Alert and oriented to person, place and time, appropriate affect, intact judgement Neuro: Muscles Strength 5/5 in all 4 extremities, Sensation to light touch grossly present throughout, Cranial nerves II-XII grossly intact, no focal sensory deficits Results CBC & Chem 7: 10/27/23 14:09 10/27/23 14:09 Labs: Abnormal Lab Results - Last 24 Hours (Table) 10/27/23 10/27/23 10/27/23 Range/Units 14:09 14:09 14:10 WBC 16.6 H (3.8-10.6) k/uL MCV 78.8 L (80.0-100.0) fL Neutrophils # 15.2 H (1.3-7.7) k/uL Lymphocytes # 0.4 L (1.0-4.8) k/uL Sodium 133 L (137-145) mmol/L Glucose 216 H (74-99) mg/dL Plasma Lactic Acid Abisai 2.4 H* (0.7-2.0) mmol/L Magnesium 1.2 L (1.6-2.3) mg/dL Assessment and Plan Plan: Sepsis source UTI High risk due to diabetes Will order CT abd and pelvis Abx with ceftriaxone 1gm IV daily ID consult Blood and urine cx. DM 2 States his last A1c 3 months ago was between 6 and 7 SSI Hold orals BG checks every AC and HS HTN Stable resume losartan Migraines With acute worsening Use imitrex for now Continue topamax. DVT prophylaxis Lovenox Admit to inpatient expected length of stay more than 2 midnights.
--- NOTE | 2023-10-27 18:35 | CT ---
EXAMINATION TYPE: CT abdomen pelvis w con CT DLP: 2645.7 mGycm, Automated exposure control for dose reduction was used. DATE OF EXAM: 10/27/2023 6:22 PM COMPARISON: None. CLINICAL INDICATION: Male, 53 years old with history of fever , abd pain; Fever and Abdominal pain TECHNIQUE: Axial CT abdomen pelvis w con;Sagittal and coronal reformats were created on a separate w orkstation. Contrast used:100 ml mL of Isovue 300 with IV Contrast, (none if empty) Oral contrast used: with Oral Contrast (none if empty) FINDINGS: LOWER CHEST: Unremarkable ABDOMEN LIVER: Diffusely hypoattenuating parenchyma. GALLBLADDER AND BILE DUCTS: Unremarkable. PANCREAS: Unremarkable. SPLEEN: Unremarkable. ADRENAL GLANDS: Unremarkable. KIDNEYS AND URETERS: Simple appearing renal cysts bilaterally. 2 mm nonobstructing left renal calculu s. Mild right hydronephrosis secondary obstructing 4 mm calculus at the distal right ureter proximal to the ureterovesicular junction up to 14 mm. There is fat stranding changes extending up the right u reter into the vein around right kidney. PELVIS BLADDER: Unremarkable REPRODUCTIVE: Unremarkable. ABDOMEN & PELVIS STOMACH AND BOWEL: No evidence of bowel obstruction. Scattered colonic diverticula. The appendix is n ormal. PERITONEUM/RETROPERITONEUM: No evidence of pneumoperitoneum or free fluid. VASCULATURE: No evidence of aortic aneurysm. MUSCULOSKELETAL: No acute osseous abnormalities LYMPH NODES: No gross evidence for lymphadenopathy. SOFT TISSUE/ABDOMINAL WALL: Right fat containing inguinal hernia. IMPRESSION: 1. Mild right hydronephrosis secondary obstructing 4 mm calculus at the distal right ureter. Mild in flammation around the right kidney and ureter correlate for ascending infection. 2. Hepatic steatosis. 3. Normal appendix. 4. Scattered colonic diverticula.
[2023-10-27] MEDS: TAMSULOSIN 0.4 MG CAP.ER.24H PO SCH (20:34)
[2023-10-27] MEDS: TOPIRAMATE 100 MG TAB PO SCH (20:34)
[2023-10-27] MEDS: LOSARTAN 50 MG TAB PO SCH (20:34)
[2023-10-27] MEDS: DICYCLOMINE 20 MG TAB PO SCH (20:35)
[2023-10-27] MEDS: SUMAtriptan succinate 50 MG TAB PO PRN (20:36)
[2023-10-27] MEDS: ACETAMINOPHEN TAB 325 MG TAB PO PRN (20:36)
[2023-10-27 21:58] LABS: Glucose,Whole Blood 189 mg/dL (70-110)
[2023-10-27] MEDS: ACETAMINOPHEN TAB 325 MG TAB PO STA (22:21)
[2023-10-27] MEDS: INSULIN ASPART (NovoLOG) 100 UNIT/ML VIAL SQ SCH (22:21)
[2023-10-27] MEDS: PANTOPRAZOLE 40 MG TABLET PO SCH (22:21)
[2023-10-27] MEDS: NAPROXEN 250 MG TAB PO STA (22:57)
[2023-10-28 06:33] LABS: Glucose,Whole Blood 173 mg/dL (70-110)
--- NOTE | 2023-10-28 07:51 | P.CONS ---
History of Present Illness - Reason for Consult Consult date: 10/27/23 SIRS, fever Requesting physician: Teto Arroyo - Chief Complaint Fever x 1 day - History of Present Illness Patient is a 53-year-old male with a past medical history significant for diabetes mellitus hypertension reflux IBS presenting to the hospital for fev er x 24 hours patient mention fever started Saturday when he woke up the night before he went to sleep he was not feeling that well however did not have any fever patient is a complaining of some headache mostly frontal moderate in intensity without any radiation no photophobia did have some nausea but no vomiting no chest pain shortness of breath or cough has been evaluated some pain to the right side of abdominal area mostly dull aching moderate intensity without radiation did have some urinary symptoms of dark urine but no significant burning or difficulty urination denies having any diarrhea or constipation patient on presentation to the hospital did have a temperature of 103.1 F patient was tachycardic but not hypotensive or hypoxic patient did have white count of 16.6 with a left shift creatinine has been normal lactic acid was elevated liver enzymes are normal patient did have a chest x-ray and reported negative for acute infiltrate influenza RSV COVID testing was negative he was started on Zosyn infectious disease was consulted for further management of antibiotic therapy Review of Systems Positive point and negatives has been mentioned in the HPI, complete review of systems was performed and all other systems are negative Past Medical History Past Medical History: Diabetes Mellitus, GERD/Reflux, Hypertension Additional Past Medical History / Comment(s): Migraines, UTI's, IBS History of Any Multi-Drug Resistant Organisms: None Reported Past Surgical History: No Surgical Hx Reported Additional Past Surgical History / Comment(s): lasik surgery, carpal tunnel surgery (right), trigger finger surgery x 2, lipoma removal, Past Anesthesia/Blood Transfusion Reactions: No Reported Reaction Past Psychological History: No Psychological Hx Reported Smoking Status: Never smoker Past Alcohol Use History: None Reported Past Drug Use History: None Reported - Past Family History Brother(s) Family Medical History: Hypertension Additional Family Medical History / Comment(s): migraines Mother Family Medical History: Hypertension Additional Family Medical History / Comment(s): migraines Medications and Allergies Home Medications Medication Instructions Recorded Confirmed Type Dicyclomine [Bentyl] 20 mg PO BID 05/31/23 10/27/23 History Omeprazole [PriLOSEC] 20 mg PO BID 05/31/23 10/27/23 History Tamsulosin HCl [Flomax] 0.4 mg PO HS 05/31/23 10/27/23 History Topiramate [Topamax] 100 mg PO HS 05/31/23 10/27/23 History Losartan [Cozaar] 50 mg PO HS 10/27/23 10/27/23 History SUMAtriptan succinate [Imitrex] 50 mg PO DAILY PRN 10/27/23 10/27/23 History glipiZIDE [Glucotrol] 5 mg PO BID 10/27/23 10/27/23 History metFORMIN HCL 1,000 mg PO BID 10/27/23 10/27/23 History Allergies Allergy/AdvReac Type Severity Reaction Status Date / Time erythromycin base AdvReac Abdominal Verified 10/27/23 16:58 Pain Physical Exam Vitals: Vital Signs Temp Pulse Resp BP Pulse Ox 10/27/23 17:00 98.2 F 118 H 16 149/82 98 10/27/23 14:59 16 10/27/23 14:00 103.1 F H 132 H 20 152/92 93 L Intake and Output 10/27/23 10/27/23 10/27/23 06:59 14:59 22:59 Other: Weight 127.006 kg GENERAL DESCRIPTION: Middle-aged male lying in bed, no distress. No tachypnea or accessory muscle of respiration use. HEENT: Shows Pallor , no scleral icterus. Oral mucous membrane is dry. No pharyngeal erythema or thrush NECK: Trachea central, no thyromegaly. LUNGS: Unlabored breathing. Clear to auscultation anteriorly. No wheeze or crackle. HEART: S1, S2, regular rate and rhythm. No loud murmur ABDOMEN: Soft, mild right-sided tenderness , guarding or rigidity, no organomegaly EXTREMITIES: No edema of feet. SKIN: No rash, no masses palpable. NEUROLOGICAL: The patient is awake, alert, oriented x3, mood and affect normal. Results CBC & Chem 7: 10/27/23 14:09 10/27/23 14:09 Labs: Abnormal Lab Results - Last 24 Hours (Table) 10/27/23 10/27/23 10/27/23 Range/Units 14:09 14:09 14:10 WBC 16.6 H (3.8-10.6) k/uL MCV 78.8 L (80.0-100.0) fL Neutrophils # 15.2 H (1.3-7.7) k/uL Lymphocytes # 0.4 L (1.0-4.8) k/uL Sodium 133 L (137-145) mmol/L Glucose 216 H (74-99) mg/dL Plasma Lactic Acid Abisai (0.7-2.0) mmol/L Magnesium 1.2 L (1.6-2.3) mg/dL Urine Protein 2+ H (Negative) Urine Glucose (UA) 4+ H (Negative) Urine Ketones 1+ H (Negative) Urine Blood Moderate H (Negative) Ur Leukocyte Esterase Small H (Negative) Urine WBC 50 H (0-5) /hpf Urine Bacteria Few H (None) /hpf Urine Mucus Rare H (None) /hpf 10/27/23 Range/Units 14:10 WBC (3.8-10.6) k/uL MCV (80.0-100.0) fL Neutrophils # (1.3-7.7) k/uL Lymphocytes # (1.0-4.8) k/uL Sodium (137-145) mmol/L Glucose (74-99) mg/dL Plasma Lactic Acid Abisai 2.4 H* (0.7-2.0) mmol/L Magnesium (1.6-2.3) mg/dL Urine Protein (Negative) Urine Glucose (UA) (Negative) Urine Ketones (Negative) Urine Blood (Negative) Ur Leukocyte Esterase (Negative) Urine WBC (0-5) /hpf Urine Bacteria (None) /hpf Urine Mucus (None) /hpf Assessment and Plan (1) Sepsis Current Visit: No Status: Acute Code(s): A41.9 - SEPSIS, UNSPECIFIED ORGANISM SNOMED Code(s): 36421700 (2) UTI (urinary tract infection) Current Visit: No Status: Acute Code(s): N39.0 - URINARY TRACT INFECTION, SITE NOT SPECIFIED SNOMED Code(s): 37771433 Plan: 1patient presented to hospital with sepsis in this patient who did have fever tachycardia elevated white count meeting criteria for SIRS source is likely abnormal as the patient did have right-sided tenderness with a question of possible urinary versus GI source. 2we will wait for the urine to be finalized and we will check a CT of abdominal pelvis. 3we will continue patient on Zosyn 3.375 g every 8 hours. We will follow on clinical condition and cultures to further adjust medication if needed Thank you for this consultation we will follow the patient along with you Dictation was produced using [employer] dictation software. please excuse any grammatical, word or spelling errors. Time with Patient: Greater than 30
[2023-10-28] MEDS: ENOXAPARIN 40 MG/0.4 ML SYRINGE SQ SCH (07:55)
--- NOTE | 2023-10-28 11:00 | P.GSCN ---
History of Present Illness Consult date: 10/28/23 Reason for Consult: Right ureteral stone History of present illness: This is a 53-year-old male presented to the hospital with fevers in association with headaches. He does have a history of recurrent UTI secondary to his diabetes. On presentation patient was febrile at 103, was having minimal right lower quadrant abdominal pain. Denies any nausea or vomiting. No previous known history of kidney stones. He underwent a CT abdomen and pelvis that showed evidence of a 3 mm right-sided distal stone with minimal hydronephrosis, this morning he is completely asymptomatic and hemodynamically stable, patient has been afebrile, Review of Systems - Constitutional Denies chills - Cardiovascular Denies chest pain, Denies shortness of breath - Respiratory Denies cough, Denies 7 - Gastrointestinal Reports abdominal pain, Denies nausea, Denies vomiting Past Medical History Past Medical History: Diabetes Mellitus, GERD/Reflux, Hypertension Additional Past Medical History / Comment(s): Migraines, UTI's, IBS History of Any Multi-Drug Resistant Organisms: None Reported Past Surgical History: No Surgical Hx Reported Additional Past Surgical History / Comment(s): lasik surgery, carpal tunnel surgery (right), trigger finger surgery x 2, lipoma removal, Past Anesthesia/Blood Transfusion Reactions: No Reported Reaction Past Psychological History: No Psychological Hx Reported Smoking Status: Never smoker Past Alcohol Use History: None Reported Past Drug Use History: None Reported - Past Family History Brother(s) Family Medical History: Hypertension Additional Family Medical History / Comment(s): migraines Mother Family Medical History: Hypertension Additional Family Medical History / Comment(s): migraines Medications and Allergies Home Medications Medication Instructions Recorded Confirmed Type Dicyclomine [Bentyl] 20 mg PO BID 05/31/23 10/27/23 History Omeprazole [PriLOSEC] 20 mg PO BID 05/31/23 10/27/23 History Tamsulosin HCl [Flomax] 0.4 mg PO HS 05/31/23 10/27/23 History Topiramate [Topamax] 100 mg PO HS 05/31/23 10/27/23 History Losartan [Cozaar] 50 mg PO HS 10/27/23 10/27/23 History SUMAtriptan succinate [Imitrex] 50 mg PO DAILY PRN 10/27/23 10/27/23 History glipiZIDE [Glucotrol] 5 mg PO BID 10/27/23 10/27/23 History metFORMIN HCL 1,000 mg PO BID 10/27/23 10/27/23 History Allergies Allergy/AdvReac Type Severity Reaction Status Date / Time erythromycin base AdvReac Abdominal Verified 10/27/23 16:58 Pain Surgical - Exam Vital Signs Temp Pulse Resp BP Pulse Ox 103.1 F H 132 H 20 152/92 93 L 10/27/23 14:00 10/27/23 14:00 10/27/23 14:00 10/27/23 14:00 10/27/23 14:00 - General no distress, no pain - Eyes normal ocular movement, no pale - ENT normal nares, normal mucosa - Respiratory normal expansion, normal respiratory effort - Abdomen Abdomen: soft, non tender, no distended - Psychiatric oriented to time, oriented to person, oriented to place Results - Labs 10/27/23 14:09 10/27/23 14:09 Abnormal Lab Results - Last 24 Hours (Table) 10/27/23 10/27/23 10/27/23 Range/Units 14:09 14:09 14:10 WBC 16.6 H (3.8-10.6) k/uL MCV 78.8 L (80.0-100.0) fL Neutrophils # 15.2 H (1.3-7.7) k/uL Lymphocytes # 0.4 L (1.0-4.8) k/uL Sodium 133 L (137-145) mmol/L Glucose 216 H (74-99) mg/dL POC Glucose (mg/dL) (70-110) mg/dL Plasma Lactic Acid Abisai (0.7-2.0) mmol/L Magnesium 1.2 L (1.6-2.3) mg/dL Urine Protein 2+ H (Negative) Urine Glucose (UA) 4+ H (Negative) Urine Ketones 1+ H (Negative) Urine Blood Moderate H (Negative) Ur Leukocyte Esterase Small H (Negative) Urine WBC 50 H (0-5) /hpf Urine Bacteria Few H (None) /hpf Urine Mucus Rare H (None) /hpf 10/27/23 10/27/23 10/28/23 Range/Units 14:10 21:56 06:29 WBC (3.8-10.6) k/uL MCV (80.0-100.0) fL Neutrophils # (1.3-7.7) k/uL Lymphocytes # (1.0-4.8) k/uL Sodium (137-145) mmol/L Glucose (74-99) mg/dL POC Glucose (mg/dL) 189 H 173 H (70-110) mg/dL Plasma Lactic Acid Abisai 2.4 H* (0.7-2.0) mmol/L Magnesium (1.6-2.3) mg/dL Urine Protein (Negative) Urine Glucose (UA) (Negative) Urine Ketones (Negative) Urine Blood (Negative) Ur Leukocyte Esterase (Negative) Urine WBC (0-5) /hpf Urine Bacteria (None) /hpf Urine Mucus (None) /hpf Diabetes panel 10/27/23 Range/Units 14:09 Sodium 133 L (137-145) mmol/L Potassium 4.1 (3.5-5.1) mmol/L Chloride 101 (98-107) mmol/L Carbon Dioxide 24 (22-30) mmol/L BUN 15 (9-20) mg/dL Creatinine 0.72 (0.66-1.25) mg/dL Glucose 216 H (74-99) mg/dL Calcium 9.4 (8.4-10.2) mg/dL AST 36 (17-59) U/L ALT 32 (4-49) U/L Alkaline Phosphatase 65 (38-126) U/L Total Protein 7.2 (6.3-8.2) g/dL Albumin 4.2 (3.5-5.0) g/dL Calcium panel 10/27/23 Range/Units 14:09 Calcium 9.4 (8.4-10.2) mg/dL Albumin 4.2 (3.5-5.0) g/dL Pituitary panel 10/27/23 Range/Units 14:09 Sodium 133 L (137-145) mmol/L Potassium 4.1 (3.5-5.1) mmol/L Chloride 101 (98-107) mmol/L Carbon Dioxide 24 (22-30) mmol/L BUN 15 (9-20) mg/dL Creatinine 0.72 (0.66-1.25) mg/dL Glucose 216 H (74-99) mg/dL Calcium 9.4 (8.4-10.2) mg/dL Adrenal panel 10/27/23 Range/Units 14:09 Sodium 133 L (137-145) mmol/L Potassium 4.1 (3.5-5.1) mmol/L Chloride 101 (98-107) mmol/L Carbon Dioxide 24 (22-30) mmol/L BUN 15 (9-20) mg/dL Creatinine 0.72 (0.66-1.25) mg/dL Glucose 216 H (74-99) mg/dL Calcium 9.4 (8.4-10.2) mg/dL Total Bilirubin 1.0 (0.2-1.3) mg/dL AST 36 (17-59) U/L ALT 32 (4-49) U/L Alkaline Phosphatase 65 (38-126) U/L Total Protein 7.2 (6.3-8.2) g/dL Albumin 4.2 (3.5-5.0) g/dL Assessment and Plan Assessment: 53-year-old male admitted to the hospital with a febrile UTI. Underwent a CT a bdomen and pelvis that showed a 3 mm right-sided distal stone with minimal hydronephrosis, I reviewed the images there is fairly minimal hydronephrosis and stranding around the kidney, it is difficult to assess whether this is a distal stone versus a phlebolith, at this point he is completely asymptomatic, and hemodynamically he is stable. He is not interested in any intervention for his stone at this time. Given the lack of symptoms, the minimal hydronephrosis and hemodynamically he is stable we will continue to closely observe, discussed if he does spike a fever then he will require a stent but at this time we will continue to monitor and reassess tomorrow
[2023-10-28 11:14] LABS: Glucose,Whole Blood 256 mg/dL (70-110)
[2023-10-28 12:12] LABS: ALT 28 U/L (10-49); AST 23 U/L (14-35); Albumin 3.6 g/dL (3.8-4.9); Albumin/Globulin Ratio 1.64 Ratio (1.60-3.17); Alkaline Phosphatase 52 U/L (41-126); BUN/Creat Ratio 15.78 Ratio (12.00-20.00); Blood Urea Nitrogen 14.2 mg/dL (9.0-27.0); Calcium 8.4 mg/dL (8.7-10.3); Carbon Dioxide 23.2 mmol/L (21.6-31.8); Chloride 106 mmol/L (96-109); Globulin 2.2 g/dL (1.6-3.3); Glucose 189 mg/dL (70-110); Magnesium 1.6 mg/dL (1.5-2.4); Potassium 3.9 mmol/L (3.5-5.5); Sodium 139 mmol/L (135-145); Total Bilirubin 0.3 mg/dL (0.3-1.2); Total Protein 5.8 g/dL (6.2-8.2)
[2023-10-28 12:51] LABS: Basophils # (A) 0.02 X 10*3/uL (0.00-0.10); Basophils % (A) 0.2 %; Eosinophils # (A) 0.03 X 10*3/uL (0.04-0.35); Eosinophils % (A) 0.3 %; HCT 40.8 % (39.6-50.0); HGB 12.9 g/dL (13.0-17.0); Lymphocytes # (A) 0.95 X 10*3/uL (0.90-5.00); Lymphocytes % (A) 10.6 %; MCH 25.7 pg (27.0-32.0); MCHC 31.6 g/dL (32.0-37.0); MCV 81.4 FL (80.0-97.0); Mean Platelet Volume 12.3 FL (9.5-12.2); Monocytes # (A) 0.84 X 10*3/uL (0.20-1.00); Monocytes % (A) 9.4 %; NRBC Per 100 WBC 0 X 10*3/uL (0.00-0.01); Neutrophils # (A) 7.06 X 10*3/uL (1.80-7.70); Neutrophils % (A) 79.1 %; Platelet Count 168 X 10*3/uL (140-440); RBC 5.01 X 10*6/uL (4.40-5.60); RDW 14.2 % (11.5-14.5); WBC 8.94 X 10*3/uL (4.50-10.00)
[2023-10-28] MEDS ORDERED: IBUPROFEN 600 MG TAB PO PRN (13:38)
[2023-10-28 13:53] VITALS: BP 120/75; PULSE 103; RESP 18; TEMP 97.7
[2023-10-28] MEDS: IBUPROFEN 400 MG TAB PO PRN (14:27)
--- NOTE | 2023-10-28 15:14 | P.PN ---
Subjective Progress Note Date: 10/28/23 Principal diagnosis: Reason for follow-up is a complicated UTI Patient is a 53-year-old male with a past medical history significant for diabetes mellitus hypertension reflux IBS presenting to the hospital for fever x 24 hours, the patient workup shows evidence of complicated UTI with a CT shows evidence of right-sided hydronephrosis and a positive UA. On today's evaluation that is 10/28/2023, the patient did have resolution of his fever and is afebrile today, the patient is on room air and breathing comfortably, the Pt denies having any chest pain or cough, the patient denies having any abdominal pain no vomiting or any diarrhea, patient mention feeling better and has been insisting on going home. Patient white count normalized to 8.4, creatinine 0.9 UA was positive cultures are currently pending Objective - Vital Signs Vital signs: Vital Signs Temp 97.8 F 10/28/23 07:35 Pulse 93 10/28/23 08:00 Resp 16 10/28/23 08:00 BP 115/74 10/28/23 07:35 Pulse Ox 98 10/28/23 07:35 FiO2 Intake & Output 10/27/23 10/28/23 10/28/23 18:59 06:59 18:59 Weight 127.006 kg 127.006 kg Other: # Voids 2 - Exam GENERAL DESCRIPTION: Middle-age male lying in bed in no distress RESPIRATORY SYSTEM: Unlabored breathing , decreased breath sounds at bases HEART: S1 S2 regular rate and rhythm , ABDOMEN: Soft , no tenderness EXTREMITIES: No edema feet - Labs CBC & Chem 7: 10/28/23 04:43 10/28/23 04:43 Labs: Abnormal Lab Results - Last 24 Hours (Table) 10/27/23 10/27/23 10/27/23 Range/Units 14:09 14:09 14:10 WBC 16.6 H (3.8-10.6) k/uL Hgb (13.0-17.0) g/dL MCV 78.8 L (80.0-100.0) fL MCH (27.0-32.0) pg MCHC (32.0-37.0) g/dL MPV (9.5-12.2) FL Neutrophils # 15.2 H (1.3-7.7) k/uL Lymphocytes # 0.4 L (1.0-4.8) k/uL Eosinophils # (0.04-0.35) X 10*3/uL Sodium 133 L (137-145) mmol/L Glucose 216 H (74-99) mg/dL POC Glucose (mg/dL) (70-110) mg/dL Plasma Lactic Acid Abisai (0.7-2.0) mmol/L Calcium (8.7-10.3) mg/dL Magnesium 1.2 L (1.6-2.3) mg/dL Total Protein (6.2-8.2) g/dL Albumin (3.8-4.9) g/dL Urine Protein 2+ H (Negative) Urine Glucose (UA) 4+ H (Negative) Urine Ketones 1+ H (Negative) Urine Blood Moderate H (Negative) Ur Leukocyte Esterase Small H (Negative) Urine WBC 50 H (0-5) /hpf Urine Bacteria Few H (None) /hpf Urine Mucus Rare H (None) /hpf 10/27/23 10/27/23 10/28/23 Range/Units 14:10 21:56 04:43 WBC (3.8-10.6) k/uL Hgb 12.9 L (13.0-17.0) g/dL MCV (80.0-100.0) fL MCH 25.7 L (27.0-32.0) pg MCHC 31.6 L (32.0-37.0) g/dL MPV 12.3 H (9.5-12.2) FL Neutrophils # (1.3-7.7) k/uL Lymphocytes # (1.0-4.8) k/uL Eosinophils # 0.03 L (0.04-0.35) X 10*3/uL Sodium (137-145) mmol/L Glucose (74-99) mg/dL POC Glucose (mg/dL) 189 H (70-110) mg/dL Plasma Lactic Acid Abisai 2.4 H* (0.7-2.0) mmol/L Calcium (8.7-10.3) mg/dL Magnesium (1.6-2.3) mg/dL Total Protein (6.2-8.2) g/dL Albumin (3.8-4.9) g/dL Urine Protein (Negative) Urine Glucose (UA) (Negative) Urine Ketones (Negative) Urine Blood (Negative) Ur Leukocyte Esterase (Negative) Urine WBC (0-5) /hpf Urine Bacteria (None) /hpf Urine Mucus (None) /hpf 10/28/23 10/28/23 10/28/23 Range/Units 04:43 06:29 11:07 WBC (3.8-10.6) k/uL Hgb (13.0-17.0) g/dL MCV (80.0-100.0) fL MCH (27.0-32.0) pg MCHC (32.0-37.0) g/dL MPV (9.5-12.2) FL Neutrophils # (1.3-7.7) k/uL Lymphocytes # (1.0-4.8) k/uL Eosinophils # (0.04-0.35) X 10*3/uL Sodium (137-145) mmol/L Glucose 189 H (74-99) mg/dL POC Glucose (mg/dL) 173 H 256 H (70-110) mg/dL Plasma Lactic Acid Abisai (0.7-2.0) mmol/L Calcium 8.4 L (8.7-10.3) mg/dL Magnesium (1.6-2.3) mg/dL Total Protein 5.8 L (6.2-8.2) g/dL Albumin 3.6 L (3.8-4.9) g/dL Urine Protein (Negative) Urine Glucose (UA) (Negative) Urine Ketones (Negative) Urine Blood (Negative) Ur Leukocyte Esterase (Negative) Urine WBC (0-5) /hpf Urine Bacteria (None) /hpf Urine Mucus (None) /hpf Assessment and Plan (1) Sepsis Status: Acute Code(s): A41.9 - SEPSIS, UNSPECIFIED ORGANISM SNOMED Code(s): 62896452 (2) UTI (urinary tract infection) Status: Acute Code(s): N39.0 - URINARY TRACT INFECTION, SITE NOT SPECIFIED SNOMED Code(s): 52666780 Plan: 1patient presented to hospital with sepsis in this patient who did have fever tachycardia elevated white count meeting criteria for SIRS source is likely abnormal as the patient did have right-sided tenderness with a question of possible urinary versus GI source. 2CT did shows evidence of small right-sided ureteral stone and hydronephrosis urology evaluated patient recommending no surgical intervention patient is feeling better and has been patient to go home has been advised to stay in the hospital at least the cultures are finalized patient mention he will think about it for now continue with Rocephin started this morning if the patient really pushing on going home may consider oral Ceftin on discharge this were discussed with the admitting physician Dictation was produced using [employer] dictation software. please excuse any gramm atical, word or spelling errors. Time with Patient: Greater than 30
--- NOTE | 2023-10-28 16:01 | P.DS ---
Providers Date of admission: 10/27/23 15:57 Expected date of discharge: 10/28/23 Attending physician: Daquan Esquivel MD Consults: 10/27/23 15:57 Consult Physician Routine Consulting Provider: Brian Mckeon Consult Reason/Comments: sirs/fever Do you want consulting provider notified?: Yes 10/28/23 07:51 Consult Physician Routine Consulting Provider: Cipriano Bartlett Consult Reason/Comments: obstructive uropathy Do you want consulting provider notified?: Yes Primary care physician: [facility] Hospital Course: Discharge Diagnosis: Sepsis secondary to acute right pyelonephritis Right obstructive uropathy Right infected nephrolithiasis Hypertension Migraine headaches Type 2 diabetes Hospital Course: 53-year-old male with a history of hypertension, migraine headaches, type 2 diabetes presented with sepsis secondary to urinary tract infection. Initial laboratory workup showed WBC of 16.6, creatinine 0.72, magnesium 1.2, urine negative for nitrites, positive for small leukocyte esterase. EKG showed sinus tachycardia, chest x-ray unremarkable. CT abdomen pelvis showed mild right hydronephrosis secondary to obstructing 4 mm calculus at the distal right ureter, mild inflammation around the right kidney and ureter correlate for ascending infection. Patient was started on IV ceftriaxone, IV fluids. Symptoms improved. Was seen by ID and urology. No interventions planned. Due to quick recovery, patient requested to be discharged. He will be discharged on oral cefdinir, follow-up outpatient with urology and PCP. Patient seen and examined at bedside. Vital signs reviewed and stable. General: Nontoxic, no distress, appears at stated age Derm: Warm, dry Head: Atraumatic, normocephalic, symmetric Eyes: EOMI, no lid lag, anicteric sclera Mouth: No lip lesion, mucus membranes moist Cardiovascular: S1S2 reg, no murmur Lungs: CTA bilateral, no rhonchi, no rales, no accessory muscle use Abdominal: Soft, nontender to palpation, no guarding, no appreciable organomegaly Ext: No gross muscle atrophy, no edema, no contractures Neuro: CN II-XI grossly intact, no focal neuro deficits Psych: Alert, oriented, appropriate affect A total of 33 minutes of time were spent preparing this complex discharge summary. Patient was discharged on 10/28/2023 1416. Patient Condition at Discharge: Stable Plan - Discharge Summary Discharge Rx Participant: No New Discharge Prescriptions: New Cefdinir 300 mg PO Q12HR #14 cap Continue Tamsulosin HCl [Flomax] 0.4 mg PO HS Losartan [Cozaar] 50 mg PO HS Omeprazole [PriLOSEC] 20 mg PO BID Dicyclomine [Bentyl] 20 mg PO BID Topiramate [Topamax] 100 mg PO HS metFORMIN HCL 1,000 mg PO BID glipiZIDE [Glucotrol] 5 mg PO BID SUMAtriptan succinate [Imitrex] 50 mg PO DAILY PRN PRN Reason: Migraine Headache Discharge Medication List Dicyclomine [Bentyl] 20 mg PO BID 05/31/23 [History] Omeprazole [PriLOSEC] 20 mg PO BID 05/31/23 [History] Tamsulosin HCl [Flomax] 0.4 mg PO HS 05/31/23 [History] Topiramate [Topamax] 100 mg PO HS 05/31/23 [History] Losartan [Cozaar] 50 mg PO HS 10/27/23 [History] SUMAtriptan succinate [Imitrex] 50 mg PO DAILY PRN 10/27/23 [History] glipiZIDE [Glucotrol] 5 mg PO BID 10/27/23 [History] metFORMIN HCL 1,000 mg PO BID 10/27/23 [History] Cefdinir 300 mg PO Q12HR #14 cap 10/28/23 [Rx] Follow up Appointment(s)/Referral(s): Cipriano Bartlett MD [STAFF PHYSICIAN] - 1 Week [facility] [Primary Care Provider] - 1-2 days Patient Instructions/Handouts: Kidney Stones (DC), Urinary Tract Infection in Men (DC) Activity/Diet/Wound Care/Special Instructions: Please see urology and PCP. Discharge Disposition: HOME SELF-CARE
== END 2023-10-28 14:46 | disposition home or self-care (01) | DRG 872 ==
LOC: EC 13:51 → 4SSUR 15:57
PROVIDERS: ADMIT Family Medicine; ATTEND Family Medicine
DX: A41.9 Sepsis, unspecified organism (principal); N13.6 Pyonephrosis; K21.9 Gastro-esophageal reflux disease without esophagitis; K58.9 Irritable bowel syndrome, unspecified; E11.9 Type 2 diabetes mellitus without complications; G43.909 Migraine, unspecified, not intractable, without status migrainosus; I10 Essential (primary) hypertension; Z79.84 Long term (current) use of oral hypoglycemic drugs; Z79.899 Other long term (current) drug therapy; Z87.440 Personal history of urinary (tract) infections; Z79.85 Long-term (current) use of injectable non-insulin antidiabetic drugs; Z11.52 Encounter for screening for COVID-19; Z88.1 Allergy status to other antibiotic agents
CPT/HCPCS: 36415; 71046; 74177; 80053; 81001; 83605; 83735; 85025; 85610; 85730; 87040; 87077; 87086; 87186; 87636; 93005; 96361; 96365; 96368; 96375; 99285

== ENCOUNTER 2024-09-18 16:00 | Emergency (ER) | payer OTHER ==
[2024-09-18 16:37] VITALS: BP 142/71; PULSE 113; RESP 22; TEMP 99.9
[2024-09-18 16:37] LABS: Glucose,Whole Blood 180 mg/dL (70-110)
--- NOTE | 2024-09-18 16:54 | ED ---
Recheck HPI - General Source: patient, RN notes reviewed Mode of arrival: ambulatory Limitations: no limitations <Benjie Plata - Last Filed: 09/23/24 13:10> <Tiffanie - Last Filed: 09/24/24 11:39> - General Chief Complaint: Recheck/Abnormal Lab/Rx Stated Complaint: headache back pain Time Seen by Provider: 09/18/24 16:16 - History of Present Illness Initial Comments: This is a 54-year-old male with history including DM, migraine, hypertension and UTI presenting with for numerous symptoms x 3 days. Patient endorses migraine/headache to the front/top of head (/10), light sensitivity nausea, dizziness, hyperglycemia, decreased appetite, and urinary odor. Patient states his blood glucose was in the 200s despite regular postprandial glipizide as prescribed. Patient denies chills, chest pain, dyspnea, abdominal pain, vomiting/diarrhea, constipation, dysuria, hematuria.. (Benjie Plata) - Related Data Home Medications Medication Instructions Recorded Confirmed Dicyclomine [Bentyl] 20 mg PO BID 05/31/23 10/27/23 Omeprazole [PriLOSEC] 20 mg PO BID 05/31/23 10/27/23 Tamsulosin HCl [Flomax] 0.4 mg PO HS 05/31/23 10/27/23 Topiramate [Topamax] 100 mg PO HS 05/31/23 10/27/23 Losartan [Cozaar] 50 mg PO HS 10/27/23 10/27/23 SUMAtriptan succinate [Imitrex] 50 mg PO DAILY PRN 10/27/23 10/27/23 glipiZIDE [Glucotrol] 5 mg PO BID 10/27/23 10/27/23 metFORMIN HCL 1,000 mg PO BID 10/27/23 10/27/23 Previous Rx's Medication Instructions Recorded Cefdinir 300 mg PO Q12HR #14 cap 10/28/23 Ketorolac [Toradol] 10 mg PO Q6HR #10 tab 09/18/24 Magnesium Oxide [Magox 400] 400 mg PO DAILY #7 tablet 09/18/24 Sulfamethox-Tmp 800-160Mg [Bactrim 1 each PO Q12HR #20 tab 09/18/24 Ds] Allergies Allergy/AdvReac Type Severity Reaction Status Date / Time erythromycin base AdvReac Abdominal Verified 09/18/24 16:37 Pain Review of Systems ROS Other: All systems not noted in ROS Statement are negative. <Benjie Plata - Last Filed: 09/23/24 13:10> ROS Other: All systems not noted in ROS Statement are negative. <Tiffanie John - Last Filed: 09/24/24 11:39> ROS Statement: Those systems with pertinent positive or pertinent negative responses have been documented in the HPI. Past Medical History Past Medical History: Diabetes Mellitus, GERD/Reflux, Hypertension Additional Past Medical History / Comment(s): Migraines, UTI's, IBS History of Any Multi-Drug Resistant Organisms: ESBL Date of last positivie culture/infection: 10/27/23 MDRO Source:: URINE Past Surgical History: No Surgical Hx Reported Additional Past Surgical History / Comment(s): lasik surgery, carpal tunnel surgery (right), trigger finger surgery x 2, lipoma removal, Past Anesthesia/Blood Transfusion Reactions: No Reported Reaction Past Psychological History: No Psychological Hx Reported Smoking Status: Never smoker Past Alcohol Use History: None Reported Past Drug Use History: None Reported - Past Family History Brother(s) Family Medical History: Hypertension Additional Family Medical History / Comment(s): migraines Mother Family Medical History: Hypertension Additional Family Medical History / Comment(s): migraines <Benjie Plata - Last Filed: 09/23/24 13:10> General Exam Limitations: no limitations General appearance: alert, in no apparent distress Head exam: Present: atraumatic, normocephalic, normal inspection Eye exam: Present: normal appearance, PERRL, EOMI. Absent: scleral icterus, conjunctival injection, periorbital swelling ENT exam: Present: normal exam, mucous membranes moist Neck exam: Present: normal inspection. Absent: tenderness, meningismus, lymphadenopathy Respiratory exam: Present: normal lung sounds bilaterally. Absent: respiratory distress, wheezes, rales, rhonchi, stridor, accessory muscle use, decreased breath sounds, prolonged expiratory Cardiovascular Exam: Present: regular rate, normal rhythm, normal heart sounds. Absent: systolic murmur, diastolic murmur, rubs, gallop, clicks GI/Abdominal exam: Present: soft, distended, normal bowel sounds. Absent: tenderness, guarding, rebound, rigid Extremities exam: Present: normal inspection, full ROM, normal capillary refill. Absent: tenderness, pedal edema, joint swelling, calf tenderness Back exam: Present: normal inspection. Absent: CVA tenderness (R), CVA tend erness (L) Neurological exam: Present: alert, oriented X3, CN II-XII intact Psychiatric exam: Present: normal affect, normal mood Skin exam: Present: warm, dry, intact, normal color. Absent: rash <Benjie Plata - Last Filed: 09/23/24 13:10> Course Vital Signs 09/18/24 16:33 Temperature 99.9 F H Pulse Rate 113 H Respiratory 22 Rate Blood Pressure 142/71 O2 Sat by Pulse 96 Oximetry Medical Decision Making - Lab Data Result diagrams: 09/18/24 17:09 09/18/24 17:09 <Benjie Plata - Last Filed: 09/23/24 13:10> - Lab Data Result diagrams: 09/18/24 17:09 09/18/24 17:09 <Tiffanie John - Last Filed: 09/24/24 11:39> - Medical Decision Making Was pt. sent in by a medical professional or institution (, PA, DIRECTOR OF PRODUCT DESIGN, urgent c are, hospital, or half-way...) When possible be specific @ -No Did you speak to anyone other than the patient for history (EMS, parent, family, police, friend...)? What history was obtained from this source @ -No Did you review nursing and triage notes (agree or disagree)? Why? @ -I reviewed and agree with nursing and triage notes Were old charts reviewed (outside hosp., previous admission, EMS record, old EKG, old radiological studies, urgent care reports/EKG's, half-way records)? Report findings @ -No old charts were reviewed Differential Diagnosis (chest pain, altered mental status, abdominal pain women, abdominal pain men, vaginal bleeding, weakness, fever, dyspnea, syncope, h eadache, dizziness, GI bleed, back pain, seizure, CVA, palpatations, mental health, musculoskeletal)? @ -Differential Fever: Pneumonia, viral URI, endocarditis, myocarditis, pericarditis, otitis, sin usitis, peritonsillar Abscess, retropharyngeal Abscess, epiglottitis, peritonitis, appendicitis, Melva cystitis, diverticulitis, hepatitis, colitis, UTI, PID, TOA, pyelonephritis, prostatitis, epididymitis, meningitis, encephalitis, pulmonary embolism, CVA, thyroid storm, pancreatitis, adrenal crisis, cavernous sinus thrombosis, this is not meant to be an all-inclusive list. Differential Headache: Migraine, tension, cluster, carbon monoxide, central venous thrombosis, pension karma temporal arteritis, acute closure glaucoma, intercranial hemorrhage, mastoiditis, sinusitis, head injury, this is not meant to be an all-inclusive list. EKG interpreted by me (3pts min.). @ -Sinus tachycardia with T wave inversion in lead III and aVF. No ST deviation. Ventricular rate 109 bpm, JAYJAY 161 ms, QRS 98 ms, QTc 391 ms. Similar T wave inversion seen in EKG from 10/27/2023. X-rays interpreted by me (1pt min.). @ -None done CT interpreted by me (1pt min.). @ -None done U/S interpreted by me (1pt. min.). @ -None done What testing was considered but not performed or refused? (CT, X-rays, U/S, labs)? Why? @ -None What meds were considered but not given or refused? Why? @ -None Did you discuss the management of the patient with other professionals (professionals i.e. , PA, DIRECTOR OF PRODUCT DESIGN, lab, RT, psych nurse, delinquency prevention social worker, fitter and turner, teacher, law enforcement officer, home health care case manager)? Give summary @ -No Was smoking cessation discussed for >3mins.? @ -No Was critical care preformed (if so, how long)? @ -No Were there social determinants of health that impacted care today? How? (Homelessness, low income, unemployed, alcoholism, drug addiction, transportation, low edu. Level, literacy, decrease access to med. care, assisted, rehab)? @ -No Was there de-escalation of care discussed even if they declined (Discuss DNR or withdrawal of care, Hospice)? DNR status @ -No What co-morbidities impacted this encounter? (DM, HTN, Smoking, COPD, CAD, Cancer, CVA, ARF, Chemo, Hep., AIDS, mental health diagnosis, sleep apnea, m orbid obesity)? @ -DM Was patient admitted / discharged? Hospital course, mention meds given and rou te, prescriptions, significant lab abnormalities, going to OR and other pertinent info. @ -Due to meeting SIRS criteria with fever and tachycardia, patient initially provided IV LR, Toradol, Reglan, Benadryl, Rocephin and p.o. Tylenol. Lab work notable for WBC 19.16 with left shift, glucose 180, magnesium 1.5. Urine positive for leuk esterase, WBC, hematuria and trace glycosuria/proteinuria. Kidney function, LFTs, acetone and Cepheid test unremarkable/negative. CXR shows no acute cardiopulmonary process. Patient provided additional LR Rocephin and p.o. magnesium. Provided initial dose of p.o. Bactrim DS. Patient states he would prefer outpatient management for infection despite early indications of sepsis. Advise return to ER if fever does not resolve or worsens, urinary symptoms do not resolve or experiencing mid back pain despite antibiotic use. B actrim DS, magnesium oxide and Toradol sent to patient's pharmacy. Follow-up with PCP in the next 24-48 hours[address] Discussed patient with Dr. John. Undiagnosed new problem with uncertain prognosis? @ -No Drug Therapy requiring intensive monitoring for toxicity (Heparin, Nitro, Insulin, Cardizem)? @ -No Were any procedures done? @ -No Diagnosis/symptom? @ -UTI, migraine Acute, or Chronic, or Acute on Chronic? @ -Acute Uncomplicated (without systemic symptoms) or Complicated (systemic symptoms)? @ -Complicated Side effects of treatment? @ -No Exacerbation, Progression, or Severe Exacerbation? @ -No Poses a threat to life or bodily function? How? (Chest pain, [place], [place], pneumonia, PE, COPD, DKA, ARF, appy, cholecystitis, CVA, Diverticulitis, Homicidal, Suicidal, threat to staff... and all critical care pts) @ -No (Benjie Plata) Case discussed with myself by BRENTON Plata. I did assess the patient and discussed with him and his presence of UTI and his prior admissions for sepsis 2/2 UTI. Of note, pt had no CVA TTP. UA significant for moderate blood, moderate LE, WBC. Discussed results with patient and possible admission for complicated UTI due to symptoms and +LE and WBC in UA, and prior admissions for similar, however after extensive discussion with pt and , patient preferred to trial outpatient antibiotics and discharge home. Discussed with patient and importance of monitoring for failure of symptoms to improve in 72 hours or failure to improve after completion of antibiotics, confusion, flank pain, persistent fevers beyond another 1-2 days, and if he should have these symptoms or have any further concerns for his well being, he should return to the ED immediately. Pt was otherwise advised to follow up with his PCP and/or urologist for recheck of his urine to ensure clearance of infection and microscopic hematuria. (Tiffanie John) - Lab Data Lab Results 09/18/24 09/18/24 09/18/24 Range/Units 16:36 16:48 17:09 WBC (4.50-10.00) 10*3/uL RBC (4.40-5.60) 10*6/uL Hgb (13.0-17.0) g/dL Hct (39.6-50.0) % MCV (80.0-97.0) fL MCH (27.0-32.0) pg MCHC (32.0-37.0) g/dL Plt Count (140-440) 10*3/uL MPV (9.5-12.2) fL Immature Gran % (Auto) % Neutrophils % % Lymphocytes % % Monocytes % % Eosinophils % % Basophils % % Immature Gran # (0.00-0.04) 10*3/uL Neutrophils # (1.80-7.70) 10*3/uL Lymphocytes # (0.90-5.00) 10*3/uL Monocytes # (0.20-1.00) 10*3/uL Eosinophils # (0.04-0.35) 10*3/uL Basophils # (0.00-0.10) 10*3/uL VBG pH (7.31-7.41) VBG pCO2 (37-51) mmHg VBG HCO3 (24-28) mmol/L Sodium 137 (137-145) mmol/L Potassium 4.2 (3.5-5.1) mmol/L Chloride 102 (98-107) mmol/L Carbon Dioxide 23 (22-30) mmol/L Anion Gap 12 mmol/L BUN 16 (9-20) mg/dL Creatinine 0.79 (0.66-1.25) mg/dL Est GFR (CKD-EPI)AfAm >90 (>60 ml/min/1.73 sqM) Est GFR (CKD-EPI)NonAf >90 (>60 ml/min/1.73 sqM) Glucose 170 H (74-99) mg/dL POC Glucose (mg/dL) 180 H (70-110) mg/dL POC Glu [employer] Pipe Supervisor ID Ruth Guerrero Plasma Lactic Acid Abiasi (0.7-2.0) mmol/L Calcium 9.3 (8.4-10.2) mg/dL Phosphorus 3.3 (2.5-4.5) mg/dL Magnesium 1.5 L (1.6-2.3) mg/dL Total Bilirubin 0.9 (0.2-1.3) mg/dL AST 25 (17-59) U/L ALT 21 (4-49) U/L Alkaline Phosphatase 46 (38-126) U/L Total Protein 7.5 (6.3-8.2) g/dL Albumin 4.3 (3.5-5.0) g/dL Lipase 23 (23-300) U/L Urine Color Urine Appearance (Clear) Urine pH (5.0-8.0) Ur Specific Satin (1.001-1.035) Urine Protein (Negative) Urine Glucose (UA) (Negative) Urine Ketones (Negative) Urine Blood (Negative) Urine Nitrite (Negative) Urine Bilirubin (Negative) Urine Urobilinogen (<2.0) mg/dL Ur Leukocyte Esterase (Negative) Urine RBC (0-5) /hpf Urine WBC (0-5) /hpf Ur Squamous Epith Cells (0-4) /hpf Urine Mucus (None) /hpf Acetone, Qual Negative (Negative) Influenza Type A (PCR) Not Detected (Not Detectd) Influenza Type B (PCR) Not Detected (Not Detectd) RSV (PCR) Not Detected (Not Detectd) SARS-CoV-2 (PCR) Not Detected (Not Detectd) 09/18/24 09/18/24 09/18/24 Range/Units 17:09 17:09 17:09 WBC 19.16 H (4.50-10.00) 10*3/uL RBC 5.31 (4.40-5.60) 10*6/uL Hgb 13.7 (13.0-17.0) g/dL Hct 40.5 (39.6-50.0) % MCV 76.3 L (80.0-97.0) fL MCH 25.8 L (27.0-32.0) pg MCHC 33.8 (32.0-37.0) g/dL Plt Count 222 (140-440) 10*3/uL MPV 11.7 (9.5-12.2) fL Immature Gran % (Auto) 0.4 % Neutrophils % 80.8 % Lymphocytes % 7.4 % Monocytes % 11.1 % Eosinophils % 0.0 % Basophils % 0.3 % Immature Gran # 0.08 H (0.00-0.04) 10*3/uL Neutrophils # 15.48 H (1.80-7.70) 10*3/uL Lymphocytes # 1.41 (0.90-5.00) 10*3/uL Monocytes # 2.13 H (0.20-1.00) 10*3/uL Eosinophils # 0.00 L (0.04-0.35) 10*3/uL Basophils # 0.06 (0.00-0.10) 10*3/uL VBG pH 7.42 H (7.31-7.41) VBG pCO2 40 (37-51) mmHg VBG HCO3 26 (24-28) mmol/L Sodium (137-145) mmol/L Potassium (3.5-5.1) mmol/L Chloride (98-107) mmol/L Carbon Dioxide (22-30) mmol/L Anion Gap mmol/L BUN (9-20) mg/dL Creatinine (0.66-1.25) mg/dL Est GFR (CKD-EPI)AfAm (>60 ml/min/1.73 sqM) Est GFR (CKD-EPI)NonAf (>60 ml/min/1.73 sqM) Glucose (74-99) mg/dL POC Glucose (mg/dL) (70-110) mg/dL POC Glu [employer] P[employer] Supervisor ID Plasma Lactic Acid Abisai 1.6 (0.7-2.0) mmol/L Calcium (8.4-10.2) mg/dL Phosphorus (2.5-4.5) mg/dL Magnesium (1.6-2.3) mg/dL Total Bilirubin (0.2-1.3) mg/dL AST (17-59) U/L ALT (4-49) U/L Alkaline Phosphatase (38-126) U/L Total Protein (6.3-8.2) g/dL Albumin (3.5-5.0) g/dL Lipase (23-300) U/L Urine Color Urine Appearance (Clear) Urine pH (5.0-8.0) Ur Specific Satin (1.001-1.035) Urine Protein (Negative) Urine Glucose (UA) (Negative) Urine Ketones (Negative) Urine Blood (Negative) Urine Nitrite (Negative) Urine Bilirubin (Negative) Urine Urobilinogen (<2.0) mg/dL Ur Leukocyte Esterase (Negative) Urine RBC (0-5) /hpf Urine WBC (0-5) /hpf Ur Squamous Epith Cells (0-4) /hpf Urine Mucus (None) /hpf Acetone, Qual (Negative) Influenza Type A (PCR) (Not Detectd) Influenza Type B (PCR) (Not Detectd) RSV (PCR) (Not Detectd) SARS-CoV-2 (PCR) (Not Detectd) 09/18/24 09/18/24 Range/Units 17:17 18:57 WBC (4.50-10.00) 10*3/uL RBC (4.40-5.60) 10*6/uL Hgb (13.0-17.0) g/dL Hct (39.6-50.0) % MCV (80.0-97.0) fL MCH (27.0-32.0) pg MCHC (32.0-37.0) g/dL Plt Count (140-440) 10*3/uL MPV (9.5-12.2) fL Immature Gran % (Auto) % Neutrophils % % Lymphocytes % % Monocytes % % Eosinophils % % Basophils % % Immature Gran # (0.00-0.04) 10*3/uL Neutrophils # (1.80-7.70) 10*3/uL Lymphocytes # (0.90-5.00) 10*3/uL Monocytes # (0.20-1.00) 10*3/uL Eosinophils # (0.04-0.35) 10*3/uL Basophils # (0.00-0.10) 10*3/uL VBG pH (7.31-7.41) VBG pCO2 (37-51) mmHg VBG HCO3 (24-28) mmol/L Sodium (137-145) mmol/L Potassium (3.5-5.1) mmol/L Chloride (98-107) mmol/L Carbon Dioxide (22-30) mmol/L Anion Gap mmol/L BUN (9-20) mg/dL Creatinine (0.66-1.25) mg/dL Est GFR (CKD-EPI)AfAm (>60 ml/min/1.73 sqM) Est GFR (CKD-EPI)NonAf (>60 ml/min/1.73 sqM) Glucose (74-99) mg/dL POC Glucose (mg/dL) 177 H (70-110) mg/dL POC Glu [employer] P[employer] Supervisor ID Millie Sánchez Plasma Lactic Acid Abisai (0.7-2.0) mmol/L Calcium (8.4-10.2) mg/dL Phosphorus (2.5-4.5) mg/dL Magnesium (1.6-2.3) mg/dL Total Bilirubin (0.2-1.3) mg/dL AST (17-59) U/L ALT (4-49) U/L Alkaline Phosphatase (38-126) U/L Total Protein (6.3-8.2) g/dL Albumin (3.5-5.0) g/dL Lipase (23-300) U/L Urine Color Light Yellow Urine Appearance Clear (Clear) Urine pH 5.5 (5.0-8.0) Ur Specific Satin 1.019 (1.001-1.035) Urine Protein 1+ H (Negative) Urine Glucose (UA) Trace H (Negative) Urine Ketones Negative (Negative) Urine Blood Moderate H (Negative) Urine Nitrite Negative (Negative) Urine Bilirubin Negative (Negative) Urine Urobilinogen <2.0 (<2.0) mg/dL Ur Leukocyte Esterase Moderate H (Negative) Urine RBC 3 (0-5) /hpf Urine WBC 43 H (0-5) /hpf Ur Squamous Epith Cells 1 (0-4) /hpf Urine Mucus Rare H (None) /hpf Acetone, Qual (Negative) Influenza Type A (PCR) (Not Detectd) Influenza Type B (PCR) (Not Detectd) RSV (PCR) (Not Detectd) SARS-CoV-2 (PCR) (Not Detectd) Disposition Is patient prescribed a controlled substance at d/c from ED?: No Time of Disposition: 20:16 <Boni,Benjie - Last Filed: 09/23/24 13:10> <Tiffanie John - Last Filed: 09/24/24 11:39> Clinical Impression: UTI (urinary tract infection), Migraine, Hypomagnesemia Disposition: HOME SELF-CARE Condition: Fair Instructions (If sedation given, give patient instructions): Urinary Tract Infection in Men (ED), Hypomagnesemia (ED) Additional Instructions: Follow-up with PCP and urology within the next 24-48 hours. Return to ER if fever persists or worsens, urinary symptoms do not improve or experiencing mid back/kidney pain after 48 hours. Prescriptions: Sulfamethox-Tmp 800-160Mg [Bactrim Ds] 1 each PO Q12HR #20 tab Magnesium Oxide [Magox 400] 400 mg PO DAILY #7 tablet Ketorolac [Toradol] 10 mg PO Q6HR #10 tab Referrals: None,Stated [Primary Care Provider] - 1-2 days Ashok Gray MD [STAFF PHYSICIAN] - 1-2 days
[2024-09-18 17:18] LABS: Glucose,Whole Blood 177 mg/dL (70-110)
[2024-09-18] MEDS: METOCLOPRAMIDE 5 MG/ML 2 ML VIAL IVP STA (17:20)
[2024-09-18] MEDS: LACTATED RINGERS 1,000 ML IV ONE ×2 (17:20→19:03)
[2024-09-18] MEDS: KETOROLAC 15 MG/ML 1 ML VIAL IVP STA (17:21)
[2024-09-18] MEDS: ACETAMINOPHEN TAB 500 MG TAB PO STA (17:21)
[2024-09-18] MEDS: diphenhydrAMINE 50 MG/ML 1 ML VIAL IVP STA (17:21)
[2024-09-18 17:23] LABS: Basophils # (A) 0.06 10*3/uL (0.00-0.10); Basophils % (A) 0.3 %; Eosinophils # (A) 0.00 10*3/uL (0.04-0.35); Eosinophils % (A) 0.0 %; HCT 40.5 % (39.6-50.0); HGB 13.7 g/dL (13.0-17.0); Lymphocytes # (A) 1.41 10*3/uL (0.90-5.00); Lymphocytes % (A) 7.4 %; MCH 25.8 pg (27.0-32.0); MCHC 33.8 g/dL (32.0-37.0); MCV 76.3 fL (80.0-97.0); Monocytes # (A) 2.13 10*3/uL (0.20-1.00); Monocytes % (A) 11.1 %; Neutrophils # (A) 15.48 10*3/uL (1.80-7.70); Neutrophils % (A) 80.8 %; Platelet Count 222 10*3/uL (140-440); RBC 5.31 10*6/uL (4.40-5.60); RDW 13.9 % (11.5-14.5); VBG HCO3 26.0 mmol/L (24-28); VBG PCO2 40.0 mmHg (37-51); VBG PH 7.42 (7.31-7.41); WBC 19.16 10*3/uL (4.50-10.00)
[2024-09-18 17:37] LABS: ALT 21 U/L (4-49); African American GFR (CKD) >90 (>60 ml/min/1.73 sqM); Albumin 4.3 g/dL (3.5-5.0); Anion Gap 12 mmol/L; Blood Urea Nitrogen 16 mg/dL (9-20); Calcium 9.3 mg/dL (8.4-10.2); Carbon Dioxide 23 mmol/L (22-30); Chloride 102 mmol/L (98-107); Glucose 170 mg/dL (74-99); Lipase 23 U/L (23-300); Non-African American GFR(CKD) >90 (>60 ml/min/1.73 sqM); Sodium 137 mmol/L (137-145); Total Protein 7.5 g/dL (6.3-8.2)
[2024-09-18 17:40] LABS: RSV Not Detected (Not Detectd)
[2024-09-18 17:45] LABS: AST 25 U/L (17-59); Alkaline Phosphatase 46 U/L (38-126); Magnesium 1.5 mg/dL (1.6-2.3); Potassium 4.2 mmol/L (3.5-5.1)
--- NOTE | 2024-09-18 18:11 | XR ---
EXAMINATION TYPE: XR chest 2V DATE OF EXAM: 09/18/2024 6:04 PM COMPARISON: 10/27/2023 CLINICAL INDICATION: Male, 54 years old with history of Fever, tachycardia, TECHNIQUE: Frontal and lateral views of the chest are obtained. FINDINGS: There is no focal air space opacity, pleural effusion, or pneumothorax seen. The cardiac silhouette size is within normal limits. The osseous structures are intact. IMPRESSION: No acute cardiopulmonary process. [facility], , 09/18/2024 6:09 PM
[2024-09-18] MEDS: MAGNESIUM OXIDE 400 MG TAB PO STA (18:29)
[2024-09-18] MEDS: cefTRIAXone 1,000 MG VIAL (IM USE) IM STA (18:32)
[2024-09-18] MEDS: cefTRIAXone IN SWFI 1,000 MG/10 ML SYRINGE IVP STA (18:57)
[2024-09-18 19:17] LABS: Bilirubin,Urine Negative (Negative); Blood,Urine Moderate (Negative); Color,Urine Light Yellow; Glucose,Urine (UA) Trace (Negative); Ketones,Urine Negative (Negative); Leukocyte Esterase,Urine Moderate (Negative); Mucus,Urine Rare /hpf; Nitrite,Urine Negative (Negative); PH, Urine 5.5 (5.0-8.0); Protein,Urine 1+ (Negative); RBC,Urine 3 /hpf (0-5); Specific Gravity,Urine 1.019 (1.001-1.035); Squamous Epithelial Cell,Urine 1 /hpf (0-4); Urobilinogen,Urine <2.0 mg/dL (<2.0); WBC,Urine 43 /hpf (0-5)
[2024-09-18] MEDS: SULFAMETHOX-TMP 800-160MG 1 EACH TAB PO STA (20:34)
== END 2024-09-18 20:53 | disposition home or self-care (01) ==
LOC: EC 16:00
DX: N39.0 Urinary tract infection, site not specified (principal); E83.42 Hypomagnesemia; G43.909 Migraine, unspecified, not intractable, without status migrainosus; E11.65 Type 2 diabetes mellitus with hyperglycemia; I10 Essential (primary) hypertension; Z88.1 Allergy status to other antibiotic agents
CPT/HCPCS: 36415; 93005; 80053; 82803; 82009; 83605; 83690; 83735; 84100; 85025; 81001; 87040; 87086; 87636; 71046; 99284; 96374; 96375; 96361; J1200; J2765; J0696; J1885